=== PATIENT | female | born 1950 | race Caucasian/White ===

== ENCOUNTER 2018-10-13 02:55 | Observation (INO) ==
--- NOTE | 2018-10-13 03:05 | Emergency Department Note ---
Disposition Clinical Impression: Palpitations, Chest pain, rule out acute myocardial infarction Disposition: Admitted As Inpatient Condition: Fair General Adult HPI - General Stated complaint: tightness of chest Time Seen by Provider: 10/13/18 02:56 - Related Data Previous Rx's Medication Instructions Recorded RX: Erythromycin OPTH Oint 1 appl RIGHT EYE QID #1 tube 02/21/18 Allergies Allergy/AdvReac Type Severity Reaction Status Date / Time gabapentin [From Neurontin] Allergy Anaphylaxis Verified 10/05/15 11:16 pregabalin [From Lyrica] Allergy Anaphylaxis Verified 10/05/15 11:16 Past Medical History - Past Medical History Medical history: Reports: diabetes, GERD Surgical history: Reports: hysterectomy, orthopedic, other Psychiatric history: Reports: depression - Social History Smoking Status: Unknown if ever smoked Smokeless Tobacco Status: Yes Alcohol use: Reports: none Drug use: Reports: none Course Vital Signs Temperature 98.4 F 10/13/18 02:58 Pulse Rate 108 10/13/18 02:58 Respiratory Rate 16 10/13/18 02:58 Blood Pressure 117/69 10/13/18 02:58 O2 Sat by Pulse Oximetry 96 10/13/18 02:58 Temperature 98.0 F 10/13/18 05:50 Pulse Rate 80 10/13/18 05:50 Respiratory Rate 16 10/13/18 05:50 Blood Pressure 101/62 10/13/18 05:50 O2 Sat by Pulse Oximetry 97 10/13/18 05:50 Oxygen Delivery Oxygen Delivery Room Air Medical Decision Making - Lab Data Result diagrams: 10/13/18 03:20 10/13/18 03:20 Lab Results 10/13/18 10/13/18 10/13/18 Range/Units 03:20 03:20 03:20 WBC 7.5 (4.3-11.1) K/mcL RBC 4.55 (3.82-4.97) M/mcL Hgb 12.6 (11.5-15.4) g/dL Hct 39.5 (35.3-44.9) % MCV 86.8 (83.0-100.0) fL MCH 27.7 L (28.0-33.3) pg MCHC 31.9 (31.6-35.5) g/dL RDW 14.5 (11.5-14.5) % Plt Count 260 (140-400) K/mcL MPV 9.7 (9.4-12.4) fL Immature Gran % 0.3 (0-4) % Seg Neutrophils % 68.8 % Lymphocytes % 22.7 % Monocytes % 6.5 % Eosinophils % 1.2 % Basophils % 0.5 % Neutrophils # 5.2 (1.6-8.9) K/mcL Lymphocytes # 1.7 (0.6-4.6) K/mcL Monocytes # 0.5 (0.0-1.3) K/mcL Eosinophils # 0.1 (0.0-0.6) K/mcL Basophils # 0.0 (0.0-0.2) K/mcL Immature Plt Fraction 2.5 (1.1-6.1) % PT 10.2 (9.4-12.1) Seconds INR 0.9 APTT 31.0 (26.0-36.0) Seconds Sodium 138 (136-145) mEq/L Potassium 3.0 L (3.5-5.1) mEq/L Chloride 100 (98-107) mEq/L Carbon Dioxide 28 (23-29) mEq/L BUN 15 (8-23) mg/dL Creatinine 1.25 H (0.60-1.20) mg/dL Est GFR ( Amer) 52 L (> 60) Est GFR (Non-Af Amer) 43 L (> 60) BUN/Creatinine Ratio 12 (6-26) Glucose 183 H (70-105) mg/dL Calculated Osmolality 292 (280-300) Calcium 10.0 (8.6-10.3) mg/dL Magnesium 1.6 (1.6-2.6) mg/dL Troponin I < 0.03 (< 0.04) ng/mL Attestation Statement - Attestation Attestation: For this encounter, I have reviewed the STEMMER MACHINE or PA documentation, treatment plan, and medical decision making; and I have had face to face time with this patient. [id number] time provided Patient arrives by EMS with palpitations, tachycardia, chest discomfort and an abnormal sensation in her left upper extremity. She is mildly tachycardic but not conversationally dyspneic on exam. ECG reviewed by me
--- NOTE | 2018-10-13 03:13 | Emergency Department Note ---
Disposition Clinical Impression: Palpitations, Chest pain, rule out acute myocardial infarction Disposition: Admitted As Inpatient Condition: Fair Referrals: NONE,PCP [Primary Care Provider] - Forms: ED Satisfaction Letter Time of Disposition: 03:14 Chest Pain HPI - General Chief Complaint: ED Arrhythmia/Palpitations Stated Complaint: tightness of chest Time Seen by Provider: 10/13/18 02:56 Source: patient, EMS Mode of arrival: EMS Limitations: physical limitation Vital Signs Reviewed: Yes Nursing Notes Reviewed: Yes - History of Present Illness HPI Narrative: Alert and oriented nontoxic-appearing 68-year-old female with a history of diabetes, hypertension, hyperlipidemia, and current every day smoker presents by EMS for evaluation of substernal chest tightness, palpitations, and left upper extremity pain. Symptoms began yesterday morning. She describes a sudden onset of substernal chest pressure that radiated into the jaw. This was short-lived and resolved spontaneously. Earlier this morning shortly after she awoke, she states the pain returned. This time, it was accompanied by an aching sensation in the left upper extremity. She also describes a sensation of "my heart racing". She denies any nausea or vomiting. She does describe some "clamminess" during her ride to the emergency department in the squad. She denies any pain with inspiration or hemoptysis. She denies any cough or sputum production. She denies any previous cardiac history of her own but states a strong familial cardiac history including sudden cardiac of her father. By the time of her arrival, she states that the chest pain has resolved however the achiness in the left arm persists. EMS administered no medications in rou te. Pt complaint: chest pain (Palpitations) Duration: other (Improving) Pain Location: substernal Severity: moderate Severity scale (1-10): 5 Quality: tightness Pain Radiation: LUE Improves with: nothing Worsens with: nothing Associated symptoms: Reports: diaphoresis, palpitations. Denies: nausea, vomiting, dyspnea, fever, cough Treatments prior to arrival chest pain: none - Related Data Previous Rx's Medication Instructions Recorded Erythromycin OPTH Oint 1 appl RIGHT EYE QID #1 tube 02/21/18 Allergies Allergy/AdvReac Type Severity Reaction Status Date / Time gabapentin [From Neurontin] Allergy Anaphylaxis Verified 10/05/15 11:16 pregabalin [From Lyrica] Allergy Anaphylaxis Verified 10/05/15 11:16 All systems ED: reviewed and negative except as stated. Review of Systems: As Per HPI Constitutional: Denies: fever, chills, weakness, weight change Eyes: Denies: eye pain, eye discharge, vision change ENT ED: Denies: ear pain, throat pain, dental pain, hearing loss, epistaxis, congestion, dysphagia Cardiovascular: Reports: as per HPI, chest pain, palpitations. Denies: dyspnea on exertion, edema, syncope Respiratory: Denies: cough, dyspnea, wheezes, hemoptysis, stridor Gastrointestinal: Denies: abdominal pain, nausea, vomiting, diarrhea, constipation, hematemesis, melena, hematochezia Genitourinary: Denies: dysuria, frequency, hematuria, discharge Musculoskeletal: Denies: back pain, neck pain, arthralgia, myalgia Integumentary: Denies: rash, abrasion, lesions Neurological: Denies: headache, weakness, numbness, paresthesias, confusion, abnormal gait, vertigo Psychiatric: Denies: anxiety, depression, suicidal thoughts, homicidal thoughts, auditory hallucinations, visual hallucinations Endocrine: Denies: fatigue Hematological/Lymphatic: Denies: easy bleeding, easy bruising Allergic/Immunologic: Denies: facial swelling, urticaria Chest Pain PMH - Past Medical History Medical history: Reports: diabetes, GERD, hyperlipidemia, hypertension Surgical history: Reports: hysterectomy, orthopedic, other Psychiatric history: Reports: depression CHANGE BOOTH ATTENDANT history: Reports: no CHANGE BOOTH ATTENDANT history - Social History Smoking Status: Unknown if ever smoked Alcohol use: Reports: none Drug use: Reports: none Physical Exam - General Limitations: physical limitation General appearance: alert, in no apparent distress - Head Head exam: atraumatic, normocephalic, normal inspection - Eye Eye exam: Present: normal appearance, PERRL, EOMI. Absent: nystagmus - ENT ENT exam: mucous membranes moist - Neck Neck exam: Present: normal inspection, full ROM, trachea midline - Chest Chest inspection: Present: normal inspection, symmetric chest wall rise - Respiratory Respiratory exam: Present: normal lung sounds bilaterally. Absent: respiratory distress, wheezes, stridor, accessory muscle use, prolonged expiratory phase - Cardiovascular Cardiovascular exam: Present: normal rhythm, tachycardia, normal heart sounds - Abdominal Exam Abdominal exam: Present: soft, Non-Tender, normal bowel sounds - Extremities Exam Extremities exam: Present: full ROM, other (Right [id number] amputation) - Neurological Exam Neurological exam: Present: alert, oriented X3 - Psychiatric Psychiatric exam: Present: normal affect, normal mood - Skin Skin exam: Present: warm, dry, intact, normal color. Absent: rash Course Course Narrative: 0446: I spoke with Dr. Alexis of the hospitalist service. He accepts the pa tient for admission to the hospitalist care for further management and evaluation of this patient's chest pain. I have discussed this patient's case with Dr. Villegas, ED attending. Dr. Villegas has had a [id number] evaluation with the patient and agrees with this plan. - Reevaluation(s) Reevaluation #1: The patient states near complete resolution of her pain after the administration of a single nitroglycerin tablet. Time: 04:15 Vital Signs Temperature 98.4 F 10/13/18 02:58 Pulse Rate 108 10/13/18 02:58 Respiratory Rate 16 10/13/18 02:58 Blood Pressure 117/69 10/13/18 02:58 O2 Sat by Pulse Oximetry 96 10/13/18 02:58 Temperature 98.4 F 10/13/18 02:58 Pulse Rate 96 10/13/18 04:06 Respiratory Rate 17 10/13/18 04:06 Blood Pressure 96/62 10/13/18 04:06 O2 Sat by Pulse Oximetry 97 10/13/18 04:06 Oxygen Delivery Oxygen Delivery Room Air Chest Pain - Medical Records Medical records reviewed: Yes I reviewed the patient's medical records. - Lab Data Lab results reviewed: Yes I reviewed the patient's lab results. Lab results narrative: Lab Results 10/13/18 10/13/18 Range/Units 03:20 03:20 WBC 7.5 (4.3-11.1) K/mcL RBC 4.55 (3.82-4.97) M/mcL Hgb 12.6 (11.5-15.4) g/dL Hct 39.5 (35.3-44.9) % MCV 86.8 (83.0-100.0) fL MCH 27.7 L (28.0-33.3) pg MCHC 31.9 (31.6-35.5) g/dL RDW 14.5 (11.5-14.5) % Plt Count 260 (140-400) K/mcL MPV 9.7 (9.4-12.4) fL Immature Gran % 0.3 (0-4) % Seg Neutrophils % 68.8 % Lymphocytes % 22.7 % Monocytes % 6.5 % Eosinophils % 1.2 % Basophils % 0.5 % Neutrophils # 5.2 (1.6-8.9) K/mcL Lymphocytes # 1.7 (0.6-4.6) K/mcL Monocytes # 0.5 (0.0-1.3) K/mcL Eosinophils # 0.1 (0.0-0.6) K/mcL Basophils # 0.0 (0.0-0.2) K/mcL Immature Plt Fraction 2.5 (1.1-6.1) % Sodium 138 (136-145) mEq/L Potassium 3.0 L (3.5-5.1) mEq/L Chloride 100 (98-107) mEq/L Carbon Dioxide 28 (23-29) mEq/L BUN 15 (8-23) mg/dL Creatinine 1.25 H (0.60-1.20) mg/dL Est GFR ( Amer) 52 L (> 60) Est GFR (Non-Af Amer) 43 L (> 60) BUN/Creatinine Ratio 12 (6-26) Glucose 183 H (70-105) mg/dL Calculated Osmolality 292 (280-300) Calcium 10.0 (8.6-10.3) mg/dL Troponin I < 0.03 (< 0.04) ng/mL Result diagrams: 10/13/18 03:20 10/13/18 03:20 Lab Results 10/13/18 10/13/18 Range/Units 03:20 03:20 WBC 7.5 (4.3-11.1) K/mcL RBC 4.55 (3.82-4.97) M/mcL Hgb 12.6 (11.5-15.4) g/dL Hct 39.5 (35.3-44.9) % MCV 86.8 (83.0-100.0) fL MCH 27.7 L (28.0-33.3) pg MCHC 31.9 (31.6-35.5) g/dL RDW 14.5 (11.5-14.5) % Plt Count 260 (140-400) K/mcL MPV 9.7 (9.4-12.4) fL Immature Gran % 0.3 (0-4) % Seg Neutrophils % 68.8 % Lymphocytes % 22.7 % Monocytes % 6.5 % Eosinophils % 1.2 % Basophils % 0.5 % Neutrophils # 5.2 (1.6-8.9) K/mcL Lymphocytes # 1.7 (0.6-4.6) K/mcL Monocytes # 0.5 (0.0-1.3) K/mcL Eosinophils # 0.1 (0.0-0.6) K/mcL Basophils # 0.0 (0.0-0.2) K/mcL Immature Plt Fraction 2.5 (1.1-6.1) % Sodium 138 (136-145) mEq/L Potassium 3.0 L (3.5-5.1) mEq/L Chloride 100 (98-107) mEq/L Carbon Dioxide 28 (23-29) mEq/L BUN 15 (8-23) mg/dL Creatinine 1.25 H (0.60-1.20) mg/dL Est GFR ( Amer) 52 L (> 60) Est GFR (Non-Af Amer) 43 L (> 60) BUN/Creatinine Ratio 12 (6-26) Glucose 183 H (70-105) mg/dL Calculated Osmolality 292 (280-300) Calcium 10.0 (8.6-10.3) mg/dL Troponin I < 0.03 (< 0.04) ng/mL - Radiology Data Radiology results reviewed: Yes I reviewed the patient's radiology results. Chest X-Ray 10/13/18 02:56 IMPRESSION: No acute cardiopulmonary process identified. D/ / Glen Handley MD / Glen Handley MD Interpreting Provider: Glen Handley MD - EKG Data EKG attestation: Yes I reviewed and interpreted this EKG. EKG results narrative: EKG reviewed by Dr. Villegas as well. EKG shows a sinus tachycardia at a rate of 105 bpm. SC interval 182, QRS duration 83, QT/QTc interval 359/475. No ectopy noted. No ST elevation. Heart Score - Score History: Moderately Suspicious EKG: Normal Age: Greater than 65 Risk Factors: Equal/Greater than 3 risk factor or history of atherosclerotic disease Troponin: Less than normal limit HEART Score Total: 5
[2018-10-13] MEDS ORDERED: Nitroglycerin 0.4 MG TAB.SUBL SL PRN (03:15)
[2018-10-13] MEDS ORDERED: Aspirin 81 MG TAB.CHEW PO STA (03:15)
[2018-10-13 03:36] LABS: Basophils % 0.5 %; Eosinophils # 0.1 K/mcL (0.0-0.6); Eosinophils % 1.2 %; Hematocrit 39.5 % (35.3-44.9); Hemoglobin 12.6 g/dL (11.5-15.4); Immature Granulocytes % 0.3 % (0-4); Immature Platelets 2.5 % (1.1-6.1); Lymphocytes # 1.7 K/mcL (0.6-4.6); Lymphocytes % 22.7 %; Mean Corpuscular HGB Conc 31.9 g/dL (31.6-35.5); Mean Corpuscular Hemoglobin 27.7 pg (28.0-33.3); Mean Corpuscular Volume 86.8 fL (83.0-100.0); Mean Platelet Volume 9.7 fL (9.4-12.4); Monocytes # 0.5 K/mcL (0.0-1.3); Monocytes % 6.5 %; Neutrophils # 5.2 K/mcL (1.6-8.9); Platelet Count 260 K/mcL (140-400); Red Blood Count 4.55 M/mcL (3.82-4.97); Red Cell Distribution Width 14.5 % (11.5-14.5); Segmented Neutrophils % 68.8 %
[2018-10-13 03:56] LABS: BUN/Creatinine Ratio 12 (6-26); Blood Urea Nitrogen 15 mg/dL (8-23); Carbon Dioxide 28 mEq/L (23-29); Chloride 100 mEq/L (98-107); Glucose 183 mg/dL (70-105); Osmolality,Calculated 292 (280-300); Sodium 138 mEq/L (136-145); eGFR For Non-African Americans 43 (> 60)
[2018-10-13 03:57] LABS: Troponin I < 0.03 ng/mL (< 0.04)
[2018-10-13] MEDS ORDERED: Potassium Effervescent 25 MEQ TABLET.EFF PO ONE (04:00)
[2018-10-13 04:54] LABS: INR 0.9; Prothrombin Time 10.2 Seconds (9.4-12.1)
[2018-10-13 05:08] LABS: Magnesium 1.6 mg/dL (1.6-2.6)
[2018-10-13 07:41] VITALS: BP 98/58
[2018-10-13] MEDS ORDERED: Naloxone 0.4 MG/ML INJ IVP PRN (07:55)
[2018-10-13] MEDS ORDERED: traMADol 50 MG TABLET PO PRN (07:58)
[2018-10-13] MEDS ORDERED: 0.9 % Sodium Chloride 1,000 ML IVC SCH (08:00)
[2018-10-13] MEDS ORDERED: Regadenoson 0.4 MG/5 ML SYRINGE IVP ONE (08:21)
[2018-10-13 09:07] LABS: Chol/HDL Ratio 4.1 (0-4.9); Cholesterol 138 mg/dL (< 200); HDL Cholesterol 34 mg/dL (40-59); LDL Cholesterol,Calculated 72 mg/dL (0-99); Magnesium 1.6 mg/dL (1.6-2.6); Triglycerides 159 mg/dL (< 150); Troponin I < 0.03 ng/mL (< 0.04)
[2018-10-13] MEDS ORDERED: D5% in Water 1,000 ML IVC PRN (09:29)
[2018-10-13] MEDS ORDERED: Dextrose Gel 15 GM/37.5 ML TUBE PO PRN ×2 (09:29)
[2018-10-13] MEDS ORDERED: *HR* Dextrose 50 % in Water (Syg) 50 ML SYRINGE IVP PRN (09:29)
--- NOTE | 2018-10-13 09:38 | Internal Med History&Physical ---
Date of Encounter: 10/13/18 Time of Encounter: 09:31 Internal Medicine - H&P: HPI Chief complaint: palpitations. chest discomfort Admitted From: Home Plans for Post Hospital Care: Home History of present illness: Ms. Tripp is a 68 year old female past medical history diabetes, hypothyroidism, tobacco abuse, depression, hyperlipidemia, and BKA. Patient presented to the ED due to 2 days history of chest pain radiating to her jaw. She reports the patient is intermittent 5/10, sharp lasting <1 minute. Reports the pain went went away on its own, but last night she started having palpitations associated with chest tightness, lightheadedness and chest discomfort with radiation to her left arm. Report that those symptoms lasted about 1 hour and were relieved by nitroglycerin she received in the ED. denies chest pain, nausea, vomiting or or GI discomfort. Past Med Surg Social Fam HX - Past Medical History Medical history: diabetes, GERD Psychiatric history: depression - Past Surgical History Surgical History: hysterectomy, orthopedic, other Additional surgical history: R below the knee amputation - Social History Smoking Status: Unknown if ever smoked Packs per day: 1 Smokeless Tobacco Status: Yes Alcohol use: none Drug use: none - Family History Father Living Status: Hx Family Cardiac Disorders: Yes (OR, CHF, HTN,) Hx Family Neurologic Disorders: Yes (CVA) Mother Hx Family Respiratory Disorders: Yes (Emphysema) Internal Medicine - H&P: Meds Erythromycin OPTH Oint 1 appl RIGHT EYE QID #1 tube 02/21/18 [Rx] Allergy/AdvReac Type Severity Reaction Status Date / Time gabapentin [From Neurontin] Allergy Anaphylaxis Verified 10/05/15 11:16 pregabalin [From Lyrica] Allergy Anaphylaxis Verified 10/05/15 11:16 All Systems PM: A 10-system review of systems was performed and is negative for pertinent findings except as documented above in the HPI. - Constitutional Constitutional: no chills, no fever(s), no weakness - EENT Eyes: no irritation Ears: no decreased hearing - Cardiovascular Cardiovascular ROS IM: chest pain, lightheadedness, palpitations, no dyspnea, no paroxysmal nocturnal dyspnea, no syncope - Respiratory Respiratory: no cough, no pain on inspiration, no chest congestion, no excessive phlegm production - Gastrointestinal Gastrointestinal: no abdominal pain, no diarrhea, no melena, no nausea, no vomiting - Genitourinary Genitourinary: no dysuria, no urinary frequency, no urinary urgency - Musculoskeletal Musculoskeletal ROS IM: no muscle weakness - Integumentary Integumentary IM: no rash - Neurological Neurological ROS: no headache(s), no lack of coordination - Psychiatric Psychiatric: no depression, no hopelessness, no irritability - Endocrine Endocrine IM: no polydipsia - Hematologic/Lymphatic Hematologic/Lymphatic: no lymphadenopathy - Allergic/Immunologic Allergic/Immunologic: no wheezing Additional comments: Rest of a 10 review of system negative. - Constitutional Vitals: Temp Pulse Resp BP Pulse Ox 98.2 F 65 16 98/58 96 10/13/18 07:36 10/13/18 07:36 10/13/18 07:36 10/13/18 07:36 10/13/18 07:36 Exam: Vitals: reviewed. General: Alert and oriented x4. In no acute distress. Skin: Normal color, no rash, no lesions. HEENT: EOM, pupils equal, round and reactive. Cardiovascular: RRR, normal S1 & S2, no rubs, murmurs or gallops. Lungs: CTA b/l, no wheezes or crackles. Abdomen: Soft, non-tender, no rigidity. Extremities: right BKA, no edema in the left lower extr. Neurological: Normal cognition. Rest of the physical exam is non contributory Internal Med - H&P Results - Labs CBC & Chem 7: 10/13/18 03:20 10/13/18 03:20 Labs: Short CBC 10/13/18 Range/Units 03:20 WBC 7.5 (4.3-11.1) K/mcL Hgb 12.6 (11.5-15.4) g/dL Hct 39.5 (35.3-44.9) % Plt Count 260 (140-400) K/mcL Neutrophils # 5.2 (1.6-8.9) K/mcL BMP 10/13/18 03:20 Sodium 138 Potassium 3.0 L Chloride 100 Carbon Dioxide 28 BUN 15 Creatinine 1.25 H Glucose 183 H Calcium 10.0 Cardiac Enzymes 10/13/18 10/13/18 Range/Units 03:20 08:36 Troponin I < 0.03 < 0.03 (< 0.04) ng/mL - Impressions ITS Impressions Chest X-Ray 10/13/18 02:56 IMPRESSION: No acute cardiopulmonary process identified. D/ / Glen Handley MD / Glen Handley MD Interpreting Provider: Glen Handley MD - Diagnostic Studies Chest x-ray Status: image reviewed by me (No acute abnormalities. ) - Assessment and plan (1) Chest pain Current Visit: Yes Status: Acute Assessment and plan: atypical chest pain. Patient with multiple risk factors for CAD. Plan Serial troponin EKG Nitroglycerin 0.5 sublingual 3 every 15 minute when necessary will add Metoprolol 12.5 mg twice a day hold for SBP less than 110 and heart rate less than 55 Aspirin 81 mg by mouth daily Lisinopril 5 mg by mouth daily Telemetry monitoring TTE to evaluate wall motion and valvular abnormalities Pharm stress test ordered. Qualifiers: Chest pain type: unspecified Qualified Code(s): R07.9 - Chest pain, uns pecified (2) Diabetes Current Visit: Yes Status: Chronic Assessment and plan: as per patient she is on metformin. Carbs controlled diet. Will start levemir 5 units BID, plus lispro low dose sliding scale ac. Qualifiers: Diabetes mellitus type: type 2 Diabetes mellitus complication status: with unspecified complications Qualified Code(s): E11.8 - Type 2 diabetes mellitus with unspecified complications (3) HLD (hyperlipidemia) Current Visit: Yes Status: Chronic Assessment and plan: will start atorvastatin 40mg/PO daily. Lipid panel ordered. Qualifiers: Hyperlipidemia type: unspecified Qualified Code(s): E78.5 - Hyperlipidemia, unspecified (4) Depression Current Visit: Yes Status: Chronic Assessment and plan: On cymbalta 120mg/PO daily. resume home medication. Qualifiers: Depression Type: unspecified Qualified Code(s): F32.9 - Major depressive disorder, single episode, unspecified (5) HTN (hypertension) Current Visit: Yes Status: Chronic Assessment and plan: Started on metoprolol 12.5mg/PO daily. After pharmacy verifies meds will re- evaluate BP and adjust medications. Qualifiers: Hypertension type: unspecified Qualified Code(s): I10 - Essential (primary) hypertension (6) Hypothyroidism Current Visit: Yes Status: Chronic Assessment and plan: Resume levothyroxine after pharmacy verifies dosage. Qualifiers: Hypothyroidism type: unspecified Qualified Code(s): E03.9 - Hypothyroidism, unspecified (7) DVT prophylaxis Current Visit: Yes Status: Acute Assessment and plan: Started on heparin 5000 units SubQ Q8HRs. (8) CARRIE (acute kidney injury) Current Visit: Yes Status: Acute Assessment and plan: unclear etiology. started on gentle IV hydration. will re-evaluate kidney function in the morning. (9) Hypokalemia Current Visit: Yes Status: Acute Assessment and plan: electrolyte replaced. - Time Spent With Patient Total time spent is greater than 50% in coordination of care (as documented) at patient's floor/unit and/or counseling patient: Greater than 35 minutes (45)
[2018-10-13] MEDS ORDERED: Insulin DETEMIR 100 UNIT/ML X5UNITS SQ SCH (10:00)
[2018-10-13] MEDS ORDERED: Insulin LISPRO 300 UNITS/3 ML VIAL SQ SCH (11:30)
[2018-10-13] MEDS ORDERED: *HR* Heparin 5,000 UNIT/ML VIAL SQ SCH (14:00)
--- NOTE | 2018-10-13 15:15 | Discharge Summary ---
- NOTES TO OUTPATIENT PROVIDER Notes to Outpatient Provider: f/u with PCP within 2 weeks. Orders not resulted at time of discharge: Pending orders 10/13/18 08:00 NM james perf SPECT multi [NM] Routine 10/13/18 20:00 Troponin I Q6H 10/14/18 04:00 Basic Metabolic Panel AM 0400 Complete Blood Count w/o Diff [HEME] AM 0400 Phosphorous AM 0400 Date of Encounter: 10/13/18 Time of Encounter: 15:13 - Discharge Diagnosis (1) Chest pain Priority: Primary Status: Acute Qualifiers: Chest pain type: unspecified Qualified Code(s): R07.9 - Chest pain, unspecified (2) Diabetes Priority: Secondary Status: Chronic Qualifiers: Diabetes mellitus type: type 2 Diabetes mellitus complication status: with unspecified complications Qualified Code(s): E11.8 - Type 2 diabetes mellitus with unspecified complications (3) HLD (hyperlipidemia) Priority: Secondary Status: Chronic Qualifiers: Hyperlipidemia type: unspecified Qualified Code(s): E78.5 - Hyperlipidemia, unspecified (4) Depression Priority: Secondary Status: Chronic Qualifiers: Depression Type: unspecified Qualified Code(s): F32.9 - Major depressive d isorder, single episode, unspecified (5) HTN (hypertension) Priority: Secondary Status: Chronic Qualifiers: Hypertension type: unspecified Qualified Code(s): I10 - Essential (primary) hypertension (6) Hypothyroidism Priority: Secondary Status: Chronic Qualifiers: Hypothyroidism type: unspecified Qualified Code(s): E03.9 - Hypothyroidism, unspecified (7) DVT prophylaxis Priority: Primary Status: Acute (8) CARRIE (acute kidney injury) Priority: Primary Status: Acute (9) Hypokalemia Priority: Primary Status: Acute Hospital course: Ms. Tripp is a 68 year old female past medical history diabetes, hypothyroidism, tobacco abuse, depression, hyperlipidemia, and BKA. Patient presented to the ED due to 2 days history of chest pain radiating to her jaw. She reports the patient is intermittent 5/10, sharp lasting <1 minute. Reports the pain went went away on its own, but last night she started having palpitations associated with chest tightness, lightheadedness and chest discomfort with radiation to her left arm. Report that those symptoms lasted about 1 hour and were relieved by nitroglycerin she received in the ED. denies chest pain, nausea, vomiting or or GI discomfort. Both stress test and echocardiogram were unremarkable. Pt will be discharged home, f/u PCP within 2 weeks. Discharge discussed with: patient Time spent discussing smoking cessation with patient: more than 10 minutes - Time Spent with Patient Total time spent providing and/or coordinating discharge services: 25 mins. Less than 30 minutes - Discharge Medications Prescriptions: Atorvastatin [Lipitor] 40 mg PO HS #30 tablet Metoprolol XL (24 HR) Succ [Toprol Xl] 12.5 mg PO DAILY #30 tab.er.24h Home Medications: Erythromycin OPTH Oint 1 appl RIGHT EYE QID #1 tube 02/21/18 [Rx] Atorvastatin [Lipitor] 40 mg PO HS #30 tablet 10/13/18 [Rx] Metoprolol XL (24 HR) Succ [Toprol Xl] 12.5 mg PO DAILY #30 tab.er.24h 10/13/18 [Rx] clonazePAM [Clonazepam] 1 mg PO QAM PRN 10/13/18 [History] Allergies/Adverse Reactions: Allergy/AdvReac Type Severity Reaction Status Date / Time gabapentin [From Neurontin] Allergy Anaphylaxis Verified 10/05/15 11:16 pregabalin [From Lyrica] Allergy Anaphylaxis Verified 10/05/15 11:16 Date of admission: 10/13/18 04:48 Primary care physician: PCP NONE Anticipated date of discharge: 10/13/18 - Constitutional Vitals: Temp Pulse Resp BP Pulse Ox 98.2 F 65 16 98/58 96 10/13/18 07:36 10/13/18 07:36 10/13/18 07:36 10/13/18 07:36 10/13/18 07:36 General appearance: Present: cooperative, A&O X 3, answers questions appropriately Exam: Vitals: reviewed. General: Alert and oriented x4. In no acute distress. Skin: Normal color, no rash, no lesions. HEENT: EOM, pupils equal, round and reactive. Cardiovascular: RRR, normal S1 & S2, no rubs, murmurs or gallops. Lungs: CTA b/l, no wheezes or crackles. Abdomen: Soft, non-tender, no rigidity. Extremities: right BKA, no edema in the left lower extr. Neurological: Normal cognition. Rest of the physical exam is non contributory - Patient Status Disposition: Home, Self-Care Condition: Fair Functional capacity at discharge: independent ambulation Overall status at discharge: patient is progressing back to baseline - Discharge Instructions Follow Up With: NONE,PCP [Primary Care Provider] - - Diet and Activity Activity: increase activity as tolerated Diet: advance to your usual diet
[2018-10-14] MEDS ORDERED: Metoprolol XL (24 HR) Succ 25 MG TAB.ER.24H PO SCH (09:00)
--- NOTE | 2018-10-14 17:48 | Electrocardiograph Report ---
[address] [place], [place] [address] Test Date: 2018-10-13 Pat Name: Ernestina Tripp Department: [id number] Room: 3B34 Gender: F Digital Data Analyst: : 1950 Requested By: Dani Chester Order Number: [id number] Reading MD: Gurvinder Whittaker Measurements Intervals [place] Rate: 105 P: 65 AR: 182 QRS: -24 QRSD: 83 T: 57 QT: 359 QTc: 475 Interpretive Statements Sinus tachycardia Probable left atrial enlargement Electronically Signed On 10-14-2018 17:46:41 EST by Gurvinder Whittaker
== END 2018-10-13 16:04 | disposition home or self-care (01) ==
LOC: EMEROOARM 02:55 → 3BNU 02:55 → SUATTDRO 04:48 → 3BNU 05:30
PROVIDERS: ADMIT Family Medicine; ATTEND Internal Medicine

== ENCOUNTER 2020-01-17 07:07 | Observation (INO) ==
[2020-01-17 07:33] LABS: Basophils % 0.3 %; Eosinophils % 0.4 %; Hematocrit 36.6 % (35.3-44.9); Hemoglobin 11.8 g/dL (11.5-15.4); Immature Granulocytes % 1.2 % (0-4); Lymphocytes # 3.1 K/mcL (0.6-4.6); Lymphocytes % 32.6 %; Mean Corpuscular HGB Conc 32.2 g/dL (31.6-35.5); Mean Corpuscular Hemoglobin 28.2 pg (28.0-33.3); Mean Corpuscular Volume 87.4 fL (83.0-100.0); Mean Platelet Volume 9.4 fL (9.4-12.4); Monocytes # 0.8 K/mcL (0.0-1.3); Monocytes % 8.5 %; Neutrophils # 5.4 K/mcL (1.6-8.9); Platelet Count 316 K/mcL (140-400); Red Blood Count 4.19 M/mcL (3.82-4.97); Red Cell Distribution Width 15.1 % (11.5-14.5); White Blood Count 9.4 K/mcL (4.3-11.1)
[2020-01-17 07:36] LABS: INR 0.9; Prothrombin Time 10.4 Seconds (9.4-12.1)
[2020-01-17 07:38] LABS: Activated Partial Thrombo Time 25.6 Seconds (26.0-36.0)
[2020-01-17 07:52] LABS: BUN/Creatinine Ratio 17 (6-26); Blood Urea Nitrogen 18 mg/dL (8-23); Calcium 9.7 mg/dL (8.6-10.3); Carbon Dioxide 30 mEq/L (23-29); Chloride 100 mEq/L (98-107); Glucose 111 mg/dL (70-105); Osmolality,Calculated 291 (280-300); Potassium 3.3 mEq/L (3.5-5.1); Sodium 139 mEq/L (136-145); Troponin I < 0.03 ng/mL (< 0.04); eGFR For African Americans > 60 (> 60); eGFR For Non-African Americans 53 (> 60)
[2020-01-17] MEDS ORDERED: Acetaminophen 325 MG TABLET PO PRN (09:15)
[2020-01-17] MEDS ORDERED: Naloxone 0.4 MG/ML INJ IVP PRN (09:15)
[2020-01-17] MEDS ORDERED: Ondansetron 4 MG/2 ML VIAL IVP PRN (09:15)
[2020-01-17] MEDS ORDERED: Nitroglycerin 0.4 MG TAB.SUBL SL PRN (09:17)
[2020-01-17] MEDS ORDERED: *HR* Dextrose 50 % in Water (Syg) 50 ML SYRINGE IVP PRN (09:17)
[2020-01-17] MEDS ORDERED: D5% in Water 1,000 ML IVC PRN (09:17)
[2020-01-17] MEDS ORDERED: Dextrose Gel 15 GM/37.5 ML TUBE PO PRN ×2 (09:17)
[2020-01-17] MEDS ORDERED: Sennosides 8.6 MG TABLET PO PRN (09:18)
[2020-01-17] MEDS ORDERED: predniSONE 20 MG TABLET PO ONE (09:19)
[2020-01-17] MEDS: Insulin LISPRO 300 UNITS/3 ML VIAL SQ SCH ×2 (13:58→17:42)
[2020-01-17] MEDS: clonazePAM 0.5 MG TABLET PO SCH ×2 (14:13→22:22)
[2020-01-17] MEDS: carvediloL 6.25 MG TABLET PO SCH (17:57)
[2020-01-17] MEDS: *HR* Heparin 5,000 UNIT/ML VIAL SQ SCH (17:59)
[2020-01-17] MEDS ORDERED: Insulin DETEMIR 100 UNIT/ML X5UNITS SQ SCH (21:00)
[2020-01-17] MEDS: cephALEXin 500 MG CAPSULE PO SCH (22:22)
[2020-01-18 05:56] LABS: Basophils # 0.1 K/mcL (0.0-0.2); Basophils % 0.9 %; Eosinophils # 0.1 K/mcL (0.0-0.6); Eosinophils % 1.6 %; Hematocrit 36.3 % (35.3-44.9); Hemoglobin 11.6 g/dL (11.5-15.4); Immature Granulocytes % 0.9 % (0-4); Lymphocytes # 2.9 K/mcL (0.6-4.6); Lymphocytes % 46.1 %; Mean Corpuscular Hemoglobin 28.8 pg (28.0-33.3); Mean Corpuscular Volume 90.1 fL (83.0-100.0); Mean Platelet Volume 9.1 fL (9.4-12.4); Monocytes # 0.4 K/mcL (0.0-1.3); Monocytes % 6.6 %; Neutrophils # 2.8 K/mcL (1.6-8.9); Platelet Count 257 K/mcL (140-400); Red Blood Count 4.03 M/mcL (3.82-4.97); Red Cell Distribution Width 15.1 % (11.5-14.5); Segmented Neutrophils % 43.9 %; White Blood Count 6.3 K/mcL (4.3-11.1)
[2020-01-18] MEDS: *HR* Heparin 5,000 UNIT/ML VIAL SQ SCH (05:56)
[2020-01-18 06:16] LABS: BUN/Creatinine Ratio 18 (6-26); Blood Urea Nitrogen 19 mg/dL (8-23); Calcium 9.1 mg/dL (8.6-10.3); Carbon Dioxide 33 mEq/L (23-29); Chloride 101 mEq/L (98-107); Cholesterol 176 mg/dL (< 200); Glucose 92 mg/dL (70-105); HDL Cholesterol 35 mg/dL (40-59); Magnesium 1.7 mg/dL (1.6-2.6); Osmolality,Calculated 290 (280-300); Phosphorous 3.5 mg/dL (2.7-4.5); Potassium 3.8 mEq/L (3.5-5.1); Sodium 139 mEq/L (136-145); Triglycerides 482 mg/dL (< 150); eGFR For African Americans > 60 (> 60); eGFR For Non-African Americans 50 (> 60)
[2020-01-18 06:27] VITALS: BP 115/69
[2020-01-18] MEDS: Insulin LISPRO 300 UNITS/3 ML VIAL SQ SCH (07:35)
[2020-01-18] MEDS: carvediloL 6.25 MG TABLET PO SCH (09:49)
[2020-01-18] MEDS: clonazePAM 0.5 MG TABLET PO SCH (09:49)
[2020-01-18] MEDS: cephALEXin 500 MG CAPSULE PO SCH (09:49)
== END 2020-01-18 10:54 | disposition home or self-care (01) ==
LOC: EMEROOARM 07:07 → 3BNU 07:07
PROVIDERS: ADMIT Internal Medicine; ATTEND Internal Medicine

== ENCOUNTER 2020-07-20 02:39 | Inpatient (IN) ==
[2020-07-20 03:12] LABS: Basophils % 0.3 %; Eosinophils # 0.3 K/mcL (0.0-0.6); Eosinophils % 2.7 %; Hematocrit 34.9 % (35.3-44.9); Hemoglobin 10.9 g/dL (11.5-15.4); Immature Granulocytes % 0.3 % (0-4); Lymphocytes # 2.6 K/mcL (0.6-4.6); Lymphocytes % 21.4 %; Mean Corpuscular HGB Conc 31.2 g/dL (31.6-35.5); Mean Corpuscular Hemoglobin 26.8 pg (28.0-33.3); Mean Corpuscular Volume 85.7 fL (83.0-100.0); Mean Platelet Volume 9.4 fL (9.4-12.4); Monocytes # 0.7 K/mcL (0.0-1.3); Neutrophils # 8.4 K/mcL (1.6-8.9); Platelet Count 298 K/mcL (140-400); Red Blood Count 4.07 M/mcL (3.82-4.97); Red Cell Distribution Width 15.3 % (11.5-14.5); Segmented Neutrophils % 69.3 %; White Blood Count 12.1 K/mcL (4.3-11.1)
[2020-07-20 03:17] LABS: Prothrombin Time 12.1 Seconds (9.4-12.1)
[2020-07-20 03:39] LABS: Alanine Aminotransferase 10 Units/L (7-52); Albumin 4.1 g/dL (3.5-5.7); Albumin/Globulin Ratio 1.6 (1.1-2.2); Alkaline Phosphatase 90 Units/L (34-104); Aspartate Amino Transferase 10 Units/L (13-39); BUN/Creatinine Ratio 15 (6-26); Bilirubin,Total 0.2 mg/dL (0.3-1.0); Blood Urea Nitrogen 16 mg/dL (8-23); Calcium 9.1 mg/dL (8.6-10.3); Carbon Dioxide 27 mEq/L (23-29); Chloride 102 mEq/L (98-107); Globulin 2.5 g/dL (2.4-3.5); Glucose 154 mg/dL (70-105); Lipase 45 Units/L (11-82); Magnesium 1.5 mg/dL (1.6-2.6); Osmolality,Calculated 290 (280-300); Sodium 138 mEq/L (136-145); Total Protein 6.6 g/dL (6.4-8.9); Troponin I 0.32 ng/mL (< 0.04); eGFR For African Americans > 60 (> 60); eGFR For Non-African Americans 50 (> 60)
[2020-07-20] MEDS ORDERED: *HR* Heparin 5,000 UNIT/ML VIAL IVP ONE (03:44)
[2020-07-20] MEDS ORDERED: Potassium Chloride Elixir 20 MEQ/15 ML UDC PO ONE (03:44)
[2020-07-20] MEDS ORDERED: *HR* Heparin 5,000 UNIT/ML VIAL IVP PRN ×2 (03:44)
[2020-07-20] MEDS ORDERED: Magnesium Sulfate 1 GM/102 ML PIGGYBACK IVPB ONE (03:45)
[2020-07-20] MEDS ORDERED: Aspirin 325 MG TABLET PO ONE (03:45)
[2020-07-20 03:49] LABS: Thyroid Stimulating Hormone 2.701 mcIU/mL (0.340-5.600)
[2020-07-20 03:55] LABS: Heparin anti-factor XA UFH < 0.04 IU/mL (0.30-0.70)
[2020-07-20 03:58] LABS: Activated Partial Thrombo Time 29.9 Seconds (26.0-36.0)
[2020-07-20] MEDS: Heparin 25,000UNIT/250ML 1/2NS 25,000 UNIT/250 ML IV.SOLN IVC SCH (03:59)
[2020-07-20] MEDS ORDERED: Acetaminophen 325 MG TABLET PO PRN (04:47)
[2020-07-20] MEDS ORDERED: Naloxone 0.4 MG/ML INJ IVP PRN (04:47)
[2020-07-20] MEDS ORDERED: Ondansetron ODT 4 MG TAB.RAPDIS SL PRN (04:47)
[2020-07-20] MEDS ORDERED: D5% in Water 1,000 ML IVC PRN (04:51)
[2020-07-20] MEDS ORDERED: *HR* Dextrose 50 % in Water (Vial) 50 ML VIAL IVP PRN (04:51)
[2020-07-20] MEDS ORDERED: Dextrose Gel 15 GM/37.5 ML TUBE PO PRN ×2 (04:51)
[2020-07-20 05:47] LABS: Adenovirus Not Detected (Not Detect); Bordetella Pertussis Not Detected (Not Detect); Chlamydophila pneumoniae Not Detected (Not Detect); Coronavirus 229E Not Detected (Not Detect); Coronavirus HKU1 Not Detected (Not Detect); Coronavirus NL63 Not Detected (Not Detect); Coronavirus OC43 Not Detected (Not Detect); Human Metapneumovirus Not Detected (Not Detect); Human Rhinovirus/Enterovirus Not Detected (Not Detect); Influenza A Subtype 2009 H1 Not Detected (Not Detect); Influenza B Not Detected (Not Detect); Mycoplasma pneumoniae Not Detected (Not Detect); Parainfluenza Virus 1 Not Detected (Not Detect); Parainfluenza Virus 2 Not Detected (Not Detect); Parainfluenza Virus 3 Not Detected (Not Detect); Parainfluenza Virus 4 Not Detected (Not Detect); Respiratory Syncytial Virus Not Detected (Not Detect); SARS-CoV-2 Not Detected (Not Detect)
[2020-07-20 07:08] LABS: Hematocrit 33.6 % (35.3-44.9); Hemoglobin 10.5 g/dL (11.5-15.4); Mean Corpuscular HGB Conc 31.3 g/dL (31.6-35.5); Mean Corpuscular Hemoglobin 27.2 pg (28.0-33.3); Mean Platelet Volume 10.1 fL (9.4-12.4); Platelet Count 309 K/mcL (140-400); Red Blood Count 3.86 M/mcL (3.82-4.97); Red Cell Distribution Width 15.5 % (11.5-14.5); White Blood Count 10.6 K/mcL (4.3-11.1)
[2020-07-20 07:29] LABS: % Iron Saturation 9 % (15-50); Iron 32 mcg/dL (50-170); Transferrin 243 mg/dL (203-362)
[2020-07-20] MEDS: Insulin LISPRO 300 UNITS/3 ML VIAL SQ SCH ×3 (07:34→18:12)
[2020-07-20] MEDS ORDERED: Nitroglycerin 0.4 MG TAB.SUBL SL PRN (07:38)
[2020-07-20] MEDS ORDERED: Perflutren Lipid Microsphere 1.3 ML in 0.9 % Sodium Chloride 8.7 ML IVP PRN (07:38)
[2020-07-20 07:46] LABS: Ferritin 10 ng/mL (10-120)
[2020-07-20] MEDS: Aspirin Enteric Coated 81 MG Tablet PO SCH (10:05)
[2020-07-20] MEDS: clonazePAM 1 MG TABLET PO SCH (10:05)
[2020-07-20] MEDS: clonazePAM 0.5 MG TABLET PO SCH (20:39)
[2020-07-21 01:18] LABS: Hematocrit 31.8 % (35.3-44.9); Hemoglobin 9.9 g/dL (11.5-15.4); Mean Corpuscular HGB Conc 31.1 g/dL (31.6-35.5); Mean Corpuscular Hemoglobin 27.7 pg (28.0-33.3); Mean Corpuscular Volume 89.1 fL (83.0-100.0); Mean Platelet Volume 9.6 fL (9.4-12.4); Platelet Count 248 K/mcL (140-400); Red Blood Count 3.57 M/mcL (3.82-4.97); Red Cell Distribution Width 15.3 % (11.5-14.5); White Blood Count 6.4 K/mcL (4.3-11.1)
[2020-07-21 01:45] LABS: BUN/Creatinine Ratio 15 (6-26); Blood Urea Nitrogen 16 mg/dL (8-23); Carbon Dioxide 28 mEq/L (23-29); Chloride 106 mEq/L (98-107); Glucose 126 mg/dL (70-105); Magnesium 1.8 mg/dL (1.6-2.6); Osmolality,Calculated 293 (280-300); Potassium 4.1 mEq/L (3.5-5.1); Sodium 140 mEq/L (136-145); eGFR For African Americans > 60 (> 60); eGFR For Non-African Americans 51 (> 60)
[2020-07-21] MEDS: Heparin 25,000UNIT/250ML 1/2NS 25,000 UNIT/250 ML IV.SOLN IVC SCH ×2 (03:52→05:29)
[2020-07-21] MEDS: Insulin LISPRO 300 UNITS/3 ML VIAL SQ SCH ×3 (10:13→17:41)
[2020-07-21] MEDS: Aspirin Enteric Coated 81 MG Tablet PO SCH (10:17)
[2020-07-21] MEDS: clonazePAM 1 MG TABLET PO SCH (10:18)
[2020-07-21] MEDS: Cyanocobalamin (B-12) 1,000 MCG TABLET PO SCH (10:18)
[2020-07-21 11:46] LABS: Hematocrit 32.8 % (35.3-44.9)
[2020-07-21 13:13] LABS: Estimated Average Glucose 146 mg/dl
[2020-07-21] MEDS ORDERED: Nitroglycerin 1,000 MCG/10 ML VIAL IV ONE (17:10)
[2020-07-21] MEDS ORDERED: ISOVUE-370 200 ML INFUS..BTL ONE (17:10)
[2020-07-21] MEDS ORDERED: Heparin 1,000 UNITS/500 mL 500 ML ONE (17:10)
[2020-07-21] MEDS ORDERED: *HR* Heparin 10,000 UNIT/10 ML VIAL ONE (17:10)
[2020-07-21] MEDS ORDERED: 0.9 % Sodium Chloride 1,000 ML ONE (17:10)
[2020-07-21] MEDS ORDERED: *HR* FentaNYL (PF) 100 MCG/2 ML VIAL ONE (17:37)
[2020-07-21] MEDS ORDERED: *HR* Midazolam HCl 2 MG/2 ML VIAL ONE (17:38)
[2020-07-21] MEDS ORDERED: 0.9 % Sodium Chloride 1,000 ML IVC SCH (18:30)
[2020-07-21] MEDS: Pantoprazole 40 MG VIAL IVP SCH (18:41)
[2020-07-21] MEDS: clonazePAM 0.5 MG TABLET PO SCH (19:20)
[2020-07-22 03:11] LABS: Basophils % 0.4 %; Eosinophils # 0.2 K/mcL (0.0-0.6); Eosinophils % 3.7 %; Hematocrit 30.7 % (35.3-44.9); Hemoglobin 9.2 g/dL (11.5-15.4); Immature Granulocytes % 0.4 % (0-4); Lymphocytes # 1.9 K/mcL (0.6-4.6); Lymphocytes % 32.9 %; Mean Corpuscular Hemoglobin 27.4 pg (28.0-33.3); Mean Corpuscular Volume 91.4 fL (83.0-100.0); Mean Platelet Volume 10.3 fL (9.4-12.4); Monocytes # 0.4 K/mcL (0.0-1.3); Monocytes % 7.6 %; Neutrophils # 3.1 K/mcL (1.6-8.9); Platelet Count 251 K/mcL (140-400); Red Blood Count 3.36 M/mcL (3.82-4.97); Red Cell Distribution Width 15.2 % (11.5-14.5); White Blood Count 5.6 K/mcL (4.3-11.1)
[2020-07-22 03:16] LABS: BUN/Creatinine Ratio 15 (6-26); Blood Urea Nitrogen 16 mg/dL (8-23); Calcium 8.5 mg/dL (8.6-10.3); Carbon Dioxide 27 mEq/L (23-29); Chloride 107 mEq/L (98-107); Glucose 139 mg/dL (70-105); Osmolality,Calculated 291 (280-300); Sodium 139 mEq/L (136-145); eGFR For African Americans > 60 (> 60); eGFR For Non-African Americans 51 (> 60)
[2020-07-22] MEDS: Pantoprazole 40 MG VIAL IVP SCH (05:26)
[2020-07-22 06:58] VITALS: BP 126/70
[2020-07-22] MEDS: Insulin LISPRO 300 UNITS/3 ML VIAL SQ SCH (08:15)
[2020-07-22] MEDS: clonazePAM 1 MG TABLET PO SCH (08:19)
[2020-07-22] MEDS: Aspirin Enteric Coated 81 MG Tablet PO SCH (08:19)
[2020-07-22] MEDS: Cyanocobalamin (B-12) 1,000 MCG TABLET PO SCH (08:19)
[2020-07-22] MEDS ORDERED: FLU Vac QV 20-21 (6Month+)/PF 0.5 ML SYRINGE IM ONE (10:20)
== END 2020-07-22 12:45 | disposition home or self-care (01) | DRG 282 ==
LOC: EMEROOARM 02:39 → 2ANU 02:39 → SUATTDRO 04:06 → 2ANU 05:02
PROVIDERS: ADMIT Student in an Organized Health Care Education/Training Program; ATTEND Internal Medicine

== ENCOUNTER 2020-10-11 17:35 | Inpatient (IN) ==
[2020-10-11] MEDS ORDERED: Isovue-370 500 ML BOTTLE IVP ONE (18:20)
[2020-10-11 19:59] LABS: Basophils # 0.1 K/mcL (0.0-0.2); Basophils % 0.5 %; Eosinophils # 0.2 K/mcL (0.0-0.6); Eosinophils % 1.6 %; Hematocrit 40.6 % (35.3-44.9); Hemoglobin 12.9 g/dL (11.5-15.4); Immature Granulocytes % 0.3 % (0-4); Lymphocytes # 2.8 K/mcL (0.6-4.6); Lymphocytes % 29.3 %; Mean Corpuscular HGB Conc 31.8 g/dL (31.6-35.5); Mean Corpuscular Hemoglobin 28.1 pg (28.0-33.3); Mean Corpuscular Volume 88.5 fL (83.0-100.0); Mean Platelet Volume 11.4 fL (9.4-12.4); Monocytes # 0.8 K/mcL (0.0-1.3); Monocytes % 8.3 %; Neutrophils # 5.8 K/mcL (1.6-8.9); Platelet Count 221 K/mcL (140-400); Red Blood Count 4.59 M/mcL (3.82-4.97); White Blood Count 9.6 K/mcL (4.3-11.1)
[2020-10-11 20:05] LABS: Prothrombin Time 11.6 Seconds (9.4-12.1)
[2020-10-11 20:08] LABS: Activated Partial Thrombo Time 28.1 Seconds (26.0-36.0)
[2020-10-11 20:33] LABS: BUN/Creatinine Ratio 14 (6-26); Blood Urea Nitrogen 14 mg/dL (8-23); Calcium 9.1 mg/dL (8.6-10.3); Carbon Dioxide 25 mEq/L (23-29); Chloride 108 mEq/L (98-107); Glucose 104 mg/dL (70-105); Osmolality,Calculated 297 (280-300); Potassium 3.3 mEq/L (3.5-5.1); Sodium 143 mEq/L (136-145); Troponin I 0.67 ng/mL (< 0.04); eGFR For African Americans > 60 (> 60); eGFR For Non-African Americans 57 (> 60)
[2020-10-11] MEDS ORDERED: *HR* Heparin 5,000 UNIT/ML VIAL IVP PRN (20:51)
[2020-10-11] MEDS ORDERED: *HR* Heparin 5,000 UNIT/ML VIAL IVP ONE (20:51)
[2020-10-11] MEDS ORDERED: Aspirin 81 MG TAB.CHEW PO ONE ×2 (20:53→21:08)
[2020-10-11] MEDS: Heparin 25,000UNIT/250ML 1/2NS 25,000 UNIT/250 ML IV.SOLN IVC SCH (21:13)
[2020-10-11 21:15] LABS: Hematocrit 36.8 % (35.3-44.9); Hemoglobin 11.8 g/dL (11.5-15.4); Mean Corpuscular HGB Conc 32.1 g/dL (31.6-35.5); Mean Corpuscular Hemoglobin 28.7 pg (28.0-33.3); Mean Corpuscular Volume 89.5 fL (83.0-100.0); Mean Platelet Volume 10.5 fL (9.4-12.4); Platelet Count 200 K/mcL (140-400); Red Blood Count 4.11 M/mcL (3.82-4.97); Red Cell Distribution Width 13.9 % (11.5-14.5); White Blood Count 8.7 K/mcL (4.3-11.1)
[2020-10-11 21:26] LABS: INR 1.1; Prothrombin Time 12.6 Seconds (9.4-12.1)
[2020-10-11 21:47] LABS: Heparin anti-factor XA UFH < 0.04 IU/mL (0.30-0.70)
[2020-10-11] MEDS ORDERED: Morphine Sulfate 2 MG/ML SYRINGE IVP PRN (23:32)
[2020-10-11] MEDS ORDERED: Nitroglycerin 0.4 MG TAB.SUBL SL PRN (23:32)
[2020-10-12 00:11] LABS: Adenovirus Not Detected (Not Detect); Coronavirus 229E Not Detected (Not Detect); Coronavirus HKU1 Not Detected (Not Detect); Coronavirus NL63 Not Detected (Not Detect); Coronavirus OC43 Not Detected (Not Detect)
[2020-10-12 00:12] LABS: Bordetella Pertussis Not Detected (Not Detect); Chlamydophila pneumoniae Not Detected (Not Detect); Human Metapneumovirus Not Detected (Not Detect); Human Rhinovirus/Enterovirus Not Detected (Not Detect); Influenza A Subtype 2009 H1 Not Detected (Not Detect); Influenza B Not Detected (Not Detect); Mycoplasma pneumoniae Not Detected (Not Detect); Parainfluenza Virus 1 Not Detected (Not Detect); Parainfluenza Virus 2 Not Detected (Not Detect); Parainfluenza Virus 3 Not Detected (Not Detect); Parainfluenza Virus 4 Not Detected (Not Detect); Respiratory Syncytial Virus Not Detected (Not Detect); SARS-CoV-2 DETECTED (Not Detect)
[2020-10-12] MEDS ORDERED: Sennosides 8.6 MG TABLET PO PRN (02:22)
[2020-10-12] MEDS ORDERED: Nitroglycerin 0.4 MG TAB.SUBL SL PRN (02:22)
[2020-10-12] MEDS ORDERED: Dextrose Gel 15 GM/37.5 ML TUBE PO PRN ×2 (02:28)
[2020-10-12] MEDS ORDERED: D5% in Water 1,000 ML IVC PRN (02:28)
[2020-10-12] MEDS ORDERED: *HR* Dextrose 50 % in Water (Vial) 50 ML VIAL IVP PRN (02:28)
[2020-10-12 03:16] LABS: Basophils # 0.1 K/mcL (0.0-0.2); Basophils % 0.8 %; Eosinophils # 0.2 K/mcL (0.0-0.6); Eosinophils % 2.2 %; Hematocrit 37.4 % (35.3-44.9); Hemoglobin 11.8 g/dL (11.5-15.4); Immature Granulocytes % 0.3 % (0-4); Lymphocytes # 2.4 K/mcL (0.6-4.6); Lymphocytes % 30.7 %; Mean Corpuscular HGB Conc 31.6 g/dL (31.6-35.5); Mean Corpuscular Volume 88.6 fL (83.0-100.0); Mean Platelet Volume 10.9 fL (9.4-12.4); Monocytes # 0.8 K/mcL (0.0-1.3); Monocytes % 9.5 %; Neutrophils # 4.5 K/mcL (1.6-8.9); Platelet Count 184 K/mcL (140-400); Red Blood Count 4.22 M/mcL (3.82-4.97); Red Cell Distribution Width 13.9 % (11.5-14.5); Segmented Neutrophils % 56.5 %; White Blood Count 7.9 K/mcL (4.3-11.1)
[2020-10-12 03:36] LABS: BUN/Creatinine Ratio 13 (6-26); Blood Urea Nitrogen 14 mg/dL (8-23); Calcium 8.9 mg/dL (8.6-10.3); Carbon Dioxide 31 mEq/L (23-29); Chloride 105 mEq/L (98-107); Chol/HDL Ratio 2.7 (0-4.9); Cholesterol 82 mg/dL (< 200); Glucose 176 mg/dL (70-105); HDL Cholesterol 30 mg/dL (40-59); LDL Cholesterol,Calculated 5 mg/dL (< 100); Osmolality,Calculated 297 (280-300); Potassium 2.9 mEq/L (3.5-5.1); Sodium 141 mEq/L (136-145); Triglycerides 237 mg/dL (< 150); eGFR For African Americans > 60 (> 60); eGFR For Non-African Americans 51 (> 60)
[2020-10-12] MEDS: Insulin LISPRO 300 UNITS/3 ML VIAL SUBQ SCH ×5 (04:59→20:29)
[2020-10-12] MEDS ORDERED: Potassium Chloride 40 MEQ, Lidocaine 1% 2 ML in 0.9 % Sodium Chloride 500 ML IVPB ONE (07:53)
[2020-10-12] MEDS ORDERED: Aspirin 81 MG TAB.CHEW PO SCH (09:00)
[2020-10-12] MEDS: carvediloL 6.25 MG TABLET PO SCH ×2 (09:01→16:39)
[2020-10-12] MEDS: lisinopriL 10 MG TABLET PO SCH (09:02)
[2020-10-12] MEDS: Pantoprazole 40 MG VIAL IVP SCH (09:02)
[2020-10-12] MEDS: Cyanocobalamin (B-12) 1,000 MCG TABLET PO SCH (09:07)
[2020-10-12] MEDS: clonazePAM 0.5 MG TABLET PO SCH ×2 (09:07→20:18)
[2020-10-12] MEDS: Loratadine 10 MG TABLET PO SCH (09:07)
[2020-10-12] MEDS: *HR* Heparin 5,000 UNIT/ML VIAL IVP PRN ×2 (10:42→20:40)
[2020-10-12] MEDS: Acetaminophen 325 MG TABLET PO PRN (11:09)
[2020-10-12] MEDS: Ipratropium 1 PUFF INHALER IH SCH ×4 (12:24→23:51)
[2020-10-12 15:39] LABS: BUN/Creatinine Ratio 12 (6-26); Blood Urea Nitrogen 11 mg/dL (8-23); Calcium 9.2 mg/dL (8.6-10.3); Carbon Dioxide 28 mEq/L (23-29); Chloride 108 mEq/L (98-107); Glucose 107 mg/dL (70-105); Osmolality,Calculated 292 (280-300); Sodium 141 mEq/L (136-145); eGFR For African Americans > 60 (> 60); eGFR For Non-African Americans 58 (> 60)
[2020-10-12] MEDS ORDERED: *HR* LORazepam 2 MG/ML VIAL IVP PRN (18:40)
[2020-10-12] MEDS: Aspirin Enteric Coated 81 MG Tablet PO SCH (20:18)
[2020-10-12] MEDS: Heparin 25,000UNIT/250ML 1/2NS 25,000 UNIT/250 ML IV.SOLN IVC SCH (21:57)
[2020-10-13] MEDS: Insulin LISPRO 300 UNITS/3 ML VIAL SUBQ SCH ×6 (02:43→20:38)
[2020-10-13 03:52] LABS: Basophils % 0.6 %; Eosinophils # 0.2 K/mcL (0.0-0.6); Hematocrit 39.1 % (35.3-44.9); Hemoglobin 12.7 g/dL (11.5-15.4); Immature Granulocytes % 0.1 % (0-4); Lymphocytes # 2.2 K/mcL (0.6-4.6); Mean Corpuscular HGB Conc 32.5 g/dL (31.6-35.5); Mean Corpuscular Hemoglobin 28.8 pg (28.0-33.3); Mean Corpuscular Volume 88.7 fL (83.0-100.0); Monocytes # 0.6 K/mcL (0.0-1.3); Monocytes % 8.2 %; Neutrophils # 3.9 K/mcL (1.6-8.9); Platelet Count 190 K/mcL (140-400); Red Blood Count 4.41 M/mcL (3.82-4.97); Segmented Neutrophils % 56.1 %; White Blood Count 6.9 K/mcL (4.3-11.1)
[2020-10-13] MEDS: Ipratropium 1 PUFF INHALER IH SCH ×5 (04:05→20:23)
[2020-10-13 04:09] LABS: BUN/Creatinine Ratio 14 (6-26); Blood Urea Nitrogen 13 mg/dL (8-23); Carbon Dioxide 28 mEq/L (23-29); Chloride 107 mEq/L (98-107); Glucose 125 mg/dL (70-105); Magnesium 1.9 mg/dL (1.6-2.6); Osmolality,Calculated 292 (280-300); Potassium 3.5 mEq/L (3.5-5.1); Sodium 140 mEq/L (136-145); eGFR For African Americans > 60 (> 60); eGFR For Non-African Americans 58 (> 60)
[2020-10-13 04:13] LABS: Troponin I 0.76 ng/mL (< 0.04)
[2020-10-13 04:25] LABS: Thyroid Stimulating Hormone 0.845 mcIU/mL (0.340-5.600)
[2020-10-13] MEDS: clonazePAM 0.5 MG TABLET PO SCH ×2 (08:27→19:38)
[2020-10-13] MEDS: lisinopriL 10 MG TABLET PO SCH (08:27)
[2020-10-13] MEDS: carvediloL 6.25 MG TABLET PO SCH ×2 (08:27→16:30)
[2020-10-13] MEDS: Loratadine 10 MG TABLET PO SCH (08:27)
[2020-10-13] MEDS: Cyanocobalamin (B-12) 1,000 MCG TABLET PO SCH (08:27)
[2020-10-13] MEDS: Pantoprazole 40 MG VIAL IVP SCH (08:27)
[2020-10-13] MEDS ORDERED: *HR* Dextrose 50 % in Water (Vial) 50 ML VIAL IVP PRN (10:23)
[2020-10-13] MEDS ORDERED: D5% in Water 1,000 ML IVC PRN (10:23)
[2020-10-13] MEDS ORDERED: Dextrose Gel 15 GM/37.5 ML TUBE PO PRN ×2 (10:23)
[2020-10-13] MEDS: Heparin 25,000UNIT/250ML 1/2NS 25,000 UNIT/250 ML IV.SOLN IVC SCH (16:31)
[2020-10-13] MEDS: Aspirin Enteric Coated 81 MG Tablet PO SCH (19:38)
[2020-10-13] MEDS: Acetaminophen 325 MG TABLET PO PRN (20:31)
[2020-10-14] MEDS: Ipratropium 1 PUFF INHALER IH SCH ×7 (00:33→23:56)
[2020-10-14] MEDS: *HR* Enoxaparin 40 MG/0.4 ML SYRINGE SQ SCH (05:35)
[2020-10-14 05:39] LABS: Basophils # 0.1 K/mcL (0.0-0.2); Basophils % 0.8 %; Eosinophils # 0.3 K/mcL (0.0-0.6); Eosinophils % 3.9 %; Hematocrit 39.7 % (35.3-44.9); Hemoglobin 12.5 g/dL (11.5-15.4); Immature Granulocytes % 0.2 % (0-4); Lymphocytes # 2.3 K/mcL (0.6-4.6); Lymphocytes % 35.9 %; Mean Corpuscular HGB Conc 31.5 g/dL (31.6-35.5); Mean Corpuscular Hemoglobin 27.7 pg (28.0-33.3); Mean Platelet Volume 10.8 fL (9.4-12.4); Monocytes # 0.6 K/mcL (0.0-1.3); Monocytes % 8.8 %; Neutrophils # 3.2 K/mcL (1.6-8.9); Platelet Count 210 K/mcL (140-400); Red Blood Count 4.51 M/mcL (3.82-4.97); Red Cell Distribution Width 14.1 % (11.5-14.5); Segmented Neutrophils % 50.4 %; White Blood Count 6.3 K/mcL (4.3-11.1)
[2020-10-14 06:08] LABS: BUN/Creatinine Ratio 16 (6-26); Blood Urea Nitrogen 16 mg/dL (8-23); Calcium 9.5 mg/dL (8.6-10.3); Carbon Dioxide 27 mEq/L (23-29); Chloride 106 mEq/L (98-107); Glucose 107 mg/dL (70-105); Magnesium 1.9 mg/dL (1.6-2.6); Osmolality,Calculated 294 (280-300); Potassium 3.5 mEq/L (3.5-5.1); Sodium 141 mEq/L (136-145); eGFR For African Americans > 60 (> 60); eGFR For Non-African Americans 56 (> 60)
[2020-10-14] MEDS ORDERED: Perflutren Lipid Microsphere 1.3 ML in 0.9 % Sodium Chloride 8.7 ML IVP PRN (07:50)
[2020-10-14] MEDS: Cyanocobalamin (B-12) 1,000 MCG TABLET PO SCH (09:19)
[2020-10-14] MEDS: clonazePAM 0.5 MG TABLET PO SCH ×2 (09:19→19:50)
[2020-10-14] MEDS: lisinopriL 10 MG TABLET PO SCH (09:19)
[2020-10-14] MEDS: carvediloL 6.25 MG TABLET PO SCH ×2 (09:19→16:48)
[2020-10-14] MEDS: Loratadine 10 MG TABLET PO SCH (09:19)
[2020-10-14] MEDS: Pantoprazole 40 MG VIAL IVP SCH (09:20)
[2020-10-14] MEDS: Insulin LISPRO 300 UNITS/3 ML VIAL SUBQ SCH ×4 (09:20→19:47)
[2020-10-14] MEDS: Aspirin Enteric Coated 81 MG Tablet PO SCH (19:50)
[2020-10-15] MEDS: Ipratropium 1 PUFF INHALER IH SCH ×2 (04:24→08:18)
[2020-10-15] MEDS: *HR* Enoxaparin 40 MG/0.4 ML SYRINGE SQ SCH (05:44)
[2020-10-15 08:18] VITALS: BP 141/76
[2020-10-15] MEDS: Insulin LISPRO 300 UNITS/3 ML VIAL SUBQ SCH (08:19)
[2020-10-15] MEDS: clonazePAM 0.5 MG TABLET PO SCH (08:33)
[2020-10-15] MEDS: Loratadine 10 MG TABLET PO SCH (08:34)
[2020-10-15] MEDS: Pantoprazole 40 MG VIAL IVP SCH (08:34)
[2020-10-15] MEDS: lisinopriL 10 MG TABLET PO SCH (08:34)
[2020-10-15] MEDS: carvediloL 6.25 MG TABLET PO SCH (08:34)
[2020-10-15] MEDS: Cyanocobalamin (B-12) 1,000 MCG TABLET PO SCH (08:34)
== END 2020-10-15 09:05 | disposition home or self-care (01) | DRG 177 ==
LOC: 3BNU 17:35 → EMEROOARM 17:35 → SUATTDRO 22:55 → 2NENU 10-12 00:22
PROVIDERS: ADMIT Student in an Organized Health Care Education/Training Program; ATTEND Pharmacist

== ENCOUNTER 2020-11-29 01:42 | Observation (INO) ==
[2020-11-29 02:40] LABS: Basophils # 0.1 K/mcL (0.0-0.2); Basophils % 0.6 %; Eosinophils # 0.2 K/mcL (0.0-0.6); Eosinophils % 1.9 %; Hematocrit 39.3 % (35.3-44.9); Hemoglobin 12.7 g/dL (11.5-15.4); Immature Granulocytes % 0.4 % (0-4); Lymphocytes # 2.6 K/mcL (0.6-4.6); Lymphocytes % 28.5 %; Mean Corpuscular HGB Conc 32.3 g/dL (31.6-35.5); Mean Corpuscular Hemoglobin 28.9 pg (28.0-33.3); Mean Corpuscular Volume 89.5 fL (83.0-100.0); Mean Platelet Volume 10.3 fL (9.4-12.4); Monocytes # 0.8 K/mcL (0.0-1.3); Monocytes % 8.6 %; Neutrophils # 5.4 K/mcL (1.6-8.9); Platelet Count 219 K/mcL (140-400); Red Blood Count 4.39 M/mcL (3.82-4.97); Red Cell Distribution Width 13.8 % (11.5-14.5)
[2020-11-29 02:45] LABS: Prothrombin Time 11.4 Seconds (9.4-12.1)
[2020-11-29 02:48] LABS: Activated Partial Thrombo Time 30.2 Seconds (26.0-36.0)
[2020-11-29 03:01] LABS: BUN/Creatinine Ratio 17 (6-26); Blood Urea Nitrogen 14 mg/dL (8-23); Calcium 9.2 mg/dL (8.6-10.3); Carbon Dioxide 28 mEq/L (23-29); Chloride 103 mEq/L (98-107); Glucose 179 mg/dL (70-105); Osmolality,Calculated 293 (280-300); Potassium 3.3 mEq/L (3.5-5.1); Sodium 139 mEq/L (136-145); eGFR For African Americans > 60 (> 60); eGFR For Non-African Americans > 60 (> 60)
[2020-11-29 03:07] LABS: Troponin I 0.19 ng/mL (< 0.04)
[2020-11-29] MEDS ORDERED: *HR* Heparin 5,000 UNIT/ML VIAL IVP ONE (03:21)
[2020-11-29] MEDS ORDERED: *HR* Heparin 5,000 UNIT/ML VIAL IVP PRN ×2 (03:21)
[2020-11-29] MEDS ORDERED: Heparin 25,000UNIT/250ML 1/2NS 25,000 UNIT/250 ML IV.SOLN IVC SCH (03:30)
[2020-11-29] MEDS ORDERED: Ondansetron ODT 4 MG TAB.RAPDIS SL PRN (03:56)
[2020-11-29] MEDS ORDERED: Acetaminophen 325 MG TABLET PO PRN (03:56)
[2020-11-29] MEDS ORDERED: Naloxone 0.4 MG/ML INJ IVP PRN (03:56)
[2020-11-29] MEDS ORDERED: D5% in Water 1,000 ML IVC PRN (04:01)
[2020-11-29] MEDS ORDERED: *HR* Dextrose 50 % in Water (Vial) 50 ML VIAL IVP PRN (04:01)
[2020-11-29] MEDS ORDERED: Dextrose Gel 15 GM/37.5 ML TUBE PO PRN ×2 (04:01)
[2020-11-29] MEDS: Insulin LISPRO 300 UNITS/3 ML VIAL SUBQ SCH ×3 (05:23→11:56)
[2020-11-29 13:07] LABS: Thyroid Stimulating Hormone 0.282 mcIU/mL (0.340-5.600)
[2020-11-29] MEDS ORDERED: *HR* Rivaroxaban 10 MG TABLET PO SCH (15:00)
[2020-11-29 15:12] VITALS: BP 123/64
[2020-11-29 16:07] LABS: Triiodothyronine (T3) Free 2.67 pg/mL (2.50-3.90)
[2020-11-29] MEDS ORDERED: carvediloL 25 MG TABLET PO SCH (17:00)
== END 2020-11-29 17:02 | disposition home or self-care (01) ==
LOC: 3ANU 01:42 → EMEROOARM 01:42 → SUATTDRO 03:53 → 3ANU 04:45
PROVIDERS: ADMIT Internal Medicine; ATTEND Family Medicine

== ENCOUNTER 2020-11-30 23:32 | Observation (INO) ==
[2020-11-30] MEDS ORDERED: 0.9 % Sodium Chloride 1,000 ML IVC ONE (23:51)
[2020-12-01 00:05] LABS: Bilirubin,Urine Negative (Negative); Blood,Urine Negative (Negative); Clarity,Urine Clear (Clear); Color,Urine Colorless (Yellow); Glucose,Urine (UA) Normal (Normal); Ketones,Urine Negative (Negative); Leukocyte Esterase,Urine Negative (Negative); Nitrite,Urine Negative (Negative); Protein,Urine Trace mg/dL (Neg-Trace); Specific Gravity,Urine 1.005 (1.010-1.025); Urobilinogen,Urine Normal (Normal)
[2020-12-01 00:23] LABS: Basophils # 0.1 K/mcL (0.0-0.2); Basophils % 0.5 %; Eosinophils # 0.2 K/mcL (0.0-0.6); Eosinophils % 1.7 %; Hemoglobin 12.6 g/dL (11.5-15.4); Immature Granulocytes % 0.5 % (0-4); Lymphocytes # 2.8 K/mcL (0.6-4.6); Lymphocytes % 28.2 %; Mean Corpuscular HGB Conc 32.3 g/dL (31.6-35.5); Mean Corpuscular Hemoglobin 28.9 pg (28.0-33.3); Mean Corpuscular Volume 89.4 fL (83.0-100.0); Mean Platelet Volume 10.1 fL (9.4-12.4); Monocytes # 0.8 K/mcL (0.0-1.3); Monocytes % 7.6 %; Neutrophils # 6.1 K/mcL (1.6-8.9); Platelet Count 231 K/mcL (140-400); Red Blood Count 4.36 M/mcL (3.82-4.97); Red Cell Distribution Width 13.7 % (11.5-14.5); Segmented Neutrophils % 61.5 %; White Blood Count 9.9 K/mcL (4.3-11.1)
[2020-12-01 00:33] LABS: Prothrombin Time 11.7 Seconds (9.4-12.1)
[2020-12-01 00:36] LABS: Activated Partial Thrombo Time 30.7 Seconds (26.0-36.0)
[2020-12-01 00:38] LABS: Calcium 8.8 mg/dL (8.6-10.3); Magnesium 1.4 mg/dL (1.6-2.6); Potassium 3.6 mEq/L (3.5-5.1)
[2020-12-01 00:43] LABS: Troponin I 0.22 ng/mL (< 0.04)
[2020-12-01 00:54] LABS: Thyroid Stimulating Hormone 0.511 mcIU/mL (0.340-5.600)
[2020-12-01] MEDS ORDERED: Acetaminophen 325 MG TABLET PO PRN (02:45)
[2020-12-01] MEDS ORDERED: Naloxone 0.4 MG/ML INJ IVP PRN (02:45)
[2020-12-01] MEDS ORDERED: Ondansetron 4 MG/2 ML VIAL IVP PRN (02:45)
[2020-12-01] MEDS ORDERED: Melatonin 3 MG TABLET PO PRN (02:45)
[2020-12-01] MEDS ORDERED: Dextrose Gel 15 GM/37.5 ML TUBE PO PRN ×2 (05:42)
[2020-12-01] MEDS ORDERED: D5% in Water 1,000 ML IVC PRN (05:42)
[2020-12-01] MEDS ORDERED: *HR* Dextrose 50 % in Water (Vial) 50 ML VIAL IVP PRN (05:42)
[2020-12-01] MEDS: Insulin LISPRO 300 UNITS/3 ML VIAL SUBQ SCH ×2 (05:45→12:33)
[2020-12-01 06:16] LABS: Troponin I 0.19 ng/mL (< 0.04)
[2020-12-01 06:23] LABS: Alanine Aminotransferase 7 Units/L (7-52); Albumin 3.2 g/dL (3.5-5.7); Albumin/Globulin Ratio 1.5 (1.1-2.2); Alkaline Phosphatase 66 Units/L (34-104); Aspartate Amino Transferase 9 Units/L (13-39); BUN/Creatinine Ratio 13 (6-26); Bilirubin,Total 0.2 mg/dL (0.3-1.0); Blood Urea Nitrogen 13 mg/dL (8-23); Calcium 8.4 mg/dL (8.6-10.3); Carbon Dioxide 28 mEq/L (23-29); Chloride 108 mEq/L (98-107); Globulin 2.2 g/dL (2.4-3.5); Glucose 115 mg/dL (70-105); Magnesium 1.7 mg/dL (1.6-2.6); Osmolality,Calculated 293 (280-300); Phosphorous 4.4 mg/dL (2.7-4.5); Potassium 3.9 mEq/L (3.5-5.1); Sodium 141 mEq/L (136-145); Total Protein 5.4 g/dL (6.4-8.9); eGFR For African Americans > 60 (> 60); eGFR For Non-African Americans 52 (> 60)
[2020-12-01 07:18] LABS: Basophils # 0.1 K/mcL (0.0-0.2); Basophils % 0.7 %; Eosinophils # 0.1 K/mcL (0.0-0.6); Eosinophils % 1.6 %; Hematocrit 35.2 % (35.3-44.9); Hemoglobin 11.2 g/dL (11.5-15.4); Immature Granulocytes % 0.3 % (0-4); Lymphocytes # 2.3 K/mcL (0.6-4.6); Lymphocytes % 31.6 %; Mean Corpuscular HGB Conc 31.8 g/dL (31.6-35.5); Mean Corpuscular Hemoglobin 28.9 pg (28.0-33.3); Mean Corpuscular Volume 90.7 fL (83.0-100.0); Mean Platelet Volume 10.4 fL (9.4-12.4); Monocytes # 0.6 K/mcL (0.0-1.3); Monocytes % 7.8 %; Neutrophils # 4.2 K/mcL (1.6-8.9); Platelet Count 198 K/mcL (140-400); Red Blood Count 3.88 M/mcL (3.82-4.97); Red Cell Distribution Width 13.8 % (11.5-14.5); White Blood Count 7.3 K/mcL (4.3-11.1)
[2020-12-01] MEDS: lisinopriL 10 MG TABLET PO SCH (12:38)
[2020-12-01] MEDS: *HR* Amiodarone 200 MG TABLET PO SCH ×2 (14:28→20:16)
[2020-12-01] MEDS ORDERED: *HR* Rivaroxaban 10 MG TABLET PO SCH (17:00)
[2020-12-01] MEDS ORDERED: carvediloL 25 MG TABLET PO SCH (17:00)
[2020-12-01] MEDS: carvediloL 6.25 MG TABLET PO SCH (18:02)
[2020-12-01] MEDS ORDERED: Insulin LISPRO 300 UNITS/3 ML VIAL SUBQ SCH ×2 (21:00)
[2020-12-01] MEDS ORDERED: clonazePAM 0.5 MG TABLET PO SCH (22:00)
[2020-12-02 06:42] LABS: Hematocrit 42.4 % (35.3-44.9); Mean Corpuscular HGB Conc 31.8 g/dL (31.6-35.5); Mean Corpuscular Hemoglobin 28.8 pg (28.0-33.3); Mean Corpuscular Volume 90.6 fL (83.0-100.0); Mean Platelet Volume 9.9 fL (9.4-12.4); Platelet Count 217 K/mcL (140-400); Red Blood Count 4.68 M/mcL (3.82-4.97); Red Cell Distribution Width 13.6 % (11.5-14.5); White Blood Count 7.8 K/mcL (4.3-11.1)
[2020-12-02 06:44] LABS: Hemoglobin 13.5 g/dL (11.5-15.4)
[2020-12-02 07:01] LABS: BUN/Creatinine Ratio 17 (6-26); Blood Urea Nitrogen 16 mg/dL (8-23); Calcium 9.5 mg/dL (8.6-10.3); Carbon Dioxide 29 mEq/L (23-29); Chloride 106 mEq/L (98-107); Glucose 137 mg/dL (70-105); Magnesium 1.8 mg/dL (1.6-2.6); Osmolality,Calculated 295 (280-300); Sodium 141 mEq/L (136-145); eGFR For African Americans > 60 (> 60); eGFR For Non-African Americans 58 (> 60)
[2020-12-02] MEDS ORDERED: Sennosides 8.6 MG TABLET PO PRN (07:08)
[2020-12-02] MEDS ORDERED: hydrOXYzine pamoate 25 MG CAPSULE PO PRN (07:08)
[2020-12-02] MEDS: Insulin LISPRO 300 UNITS/3 ML VIAL SUBQ SCH ×2 (08:13→11:45)
[2020-12-02] MEDS ORDERED: Loratadine 10 MG TABLET PO SCH (09:00)
[2020-12-02] MEDS: *HR* Amiodarone 200 MG TABLET PO SCH (09:53)
[2020-12-02] MEDS: carvediloL 6.25 MG TABLET PO SCH (09:53)
[2020-12-02] MEDS: lisinopriL 10 MG TABLET PO SCH (09:53)
[2020-12-02 10:59] VITALS: BP 122/61
[2020-12-02] MEDS ORDERED: Aspirin Enteric Coated 81 MG Tablet PO SCH (21:00)
== END 2020-12-02 12:35 | disposition home or self-care (01) ==
LOC: EMEROOARM 23:32 → 2ANU 23:32 → SUATTDRO 12-01 01:27 → 2ANU 12-01 02:44
PROVIDERS: ADMIT Family Medicine; ATTEND Internal Medicine

== ENCOUNTER 2021-01-03 15:03 | Observation (INO) ==
[2021-01-03] MEDS ORDERED: 0.9 % Sodium Chloride 500 ML IVC ONE (15:13)
[2021-01-03] MEDS ORDERED: 0.9 % Sodium Chloride 1,000 ML IVC ONE (15:22)
[2021-01-03 15:43] LABS: Basophils # 0.1 K/mcL (0.0-0.2); Basophils % 0.3 %; Eosinophils % 0.1 %; Hematocrit 30.1 % (35.3-44.9); Hemoglobin 9.8 g/dL (11.5-15.4); Immature Granulocytes % 0.4 % (0-4); Lymphocytes # 1.6 K/mcL (0.6-4.6); Lymphocytes % 10.1 %; Mean Corpuscular HGB Conc 32.6 g/dL (31.6-35.5); Mean Corpuscular Hemoglobin 29.2 pg (28.0-33.3); Mean Corpuscular Volume 89.6 fL (83.0-100.0); Mean Platelet Volume 10.5 fL (9.4-12.4); Monocytes # 1.1 K/mcL (0.0-1.3); Monocytes % 6.5 %; Neutrophils # 13.4 K/mcL (1.6-8.9); Platelet Count 234 K/mcL (140-400); Red Blood Count 3.36 M/mcL (3.82-4.97); Red Cell Distribution Width 13.9 % (11.5-14.5); Segmented Neutrophils % 82.6 %; White Blood Count 16.2 K/mcL (4.3-11.1)
[2021-01-03 15:50] LABS: INR 1.6; Prothrombin Time 17.8 Seconds (9.4-12.1)
[2021-01-03 15:53] LABS: Activated Partial Thrombo Time 31.4 Seconds (26.0-36.0)
[2021-01-03 16:04] LABS: Calcium 8.9 mg/dL (8.6-10.3); Potassium 3.9 mEq/L (3.5-5.1)
[2021-01-03 16:14] LABS: Troponin I 0.08 ng/mL (< 0.04)
[2021-01-03 17:42] LABS: Bilirubin,Urine Negative (Negative); Blood,Urine Small (Negative); Clarity,Urine Clear (Clear); Color,Urine Yellow (Yellow); Glucose,Urine (UA) Normal (Normal); Ketones,Urine Negative (Negative); Leukocyte Esterase,Urine Negative (Negative); Mucus,Urine Few per lpf (None-Few); Nitrite,Urine Negative (Negative); Protein,Urine 50 mg/dL (Neg-Trace); RBC,Urine 0-3 per hpf (0-3); Specific Gravity,Urine 1.017 (1.010-1.025); Squamous Epithelial Cell,Urine Few per hpf (None-Few); Urobilinogen,Urine Normal (Normal)
[2021-01-03] MEDS ORDERED: Naloxone 0.4 MG/ML INJ IVP PRN (18:02)
[2021-01-03] MEDS ORDERED: Dextrose Gel 15 GM/37.5 ML TUBE PO PRN ×2 (18:50)
[2021-01-03] MEDS ORDERED: D5% in Water 1,000 ML IVC PRN (18:50)
[2021-01-03] MEDS ORDERED: *HR* Dextrose 50 % in Water (Vial) 50 ML VIAL IVP PRN (18:50)
[2021-01-03] MEDS ORDERED: *HR* HYDROcodone/Acet 5/325 mg TABLET PO PRN (19:00)
[2021-01-03] MEDS ORDERED: Aspirin Enteric Coated 81 MG Tablet PO SCH (21:00)
[2021-01-03] MEDS ORDERED: Insulin LISPRO 300 UNITS/3 ML VIAL SUBQ SCH (21:00)
[2021-01-03] MEDS: carvediloL 6.25 MG TABLET PO SCH (21:17)
[2021-01-03] MEDS: Acetaminophen 325 MG TABLET PO PRN (23:58)
[2021-01-04 03:20] LABS: Basophils % 0.5 %; Eosinophils # 0.1 K/mcL (0.0-0.6); Eosinophils % 0.6 %; Hematocrit 26.4 % (35.3-44.9); Hemoglobin 8.7 g/dL (11.5-15.4); Immature Granulocytes % 0.5 % (0-4); Lymphocytes # 2.5 K/mcL (0.6-4.6); Lymphocytes % 28.9 %; Mean Corpuscular Hemoglobin 29.9 pg (28.0-33.3); Mean Corpuscular Volume 90.7 fL (83.0-100.0); Monocytes # 0.9 K/mcL (0.0-1.3); Monocytes % 10.5 %; Neutrophils # 5.1 K/mcL (1.6-8.9); Platelet Count 180 K/mcL (140-400); Red Blood Count 2.91 M/mcL (3.82-4.97); Red Cell Distribution Width 13.9 % (11.5-14.5); White Blood Count 8.6 K/mcL (4.3-11.1)
[2021-01-04] MEDS: Acetaminophen 325 MG TABLET PO PRN (07:09)
[2021-01-04] MEDS ORDERED: Potassium Chloride 40 MEQ, Lidocaine 1% 2 ML in 0.9 % Sodium Chloride 500 ML IVPB ONE (08:08)
[2021-01-04] MEDS: Insulin LISPRO 300 UNITS/3 ML VIAL SUBQ SCH ×2 (08:15→11:06)
[2021-01-04] MEDS: carvediloL 6.25 MG TABLET PO SCH (08:39)
[2021-01-04] MEDS ORDERED: Cyanocobalamin (B-12) 1,000 MCG TABLET PO SCH (09:00)
[2021-01-04] MEDS ORDERED: *HR* Amiodarone 200 MG TABLET PO SCH (09:00)
[2021-01-04] MEDS ORDERED: 0.9 % Sodium Chloride 1,000 ML IVC SCH (14:00)
[2021-01-04 14:57] LABS: Hematocrit 26.8 % (35.3-44.9); Hemoglobin 8.6 g/dL (11.5-15.4); Mean Corpuscular HGB Conc 32.1 g/dL (31.6-35.5); Mean Corpuscular Hemoglobin 29.7 pg (28.0-33.3); Mean Corpuscular Volume 92.4 fL (83.0-100.0); Mean Platelet Volume 11.1 fL (9.4-12.4); Platelet Count 190 K/mcL (140-400); White Blood Count 7.9 K/mcL (4.3-11.1)
[2021-01-04] MEDS ORDERED: carvediloL 6.25 MG TABLET PO SCH (17:00)
[2021-01-04 17:01] VITALS: BP 106/58
== END 2021-01-04 17:37 | disposition home or self-care (01) ==
LOC: 2ANU 15:03 → EMEROOARM 15:03 → SUATTDRO 20:03 → 2ANU 20:50
PROVIDERS: ADMIT Internal Medicine; ATTEND Internal Medicine

== ENCOUNTER 2021-04-10 09:34 | Inpatient (IN) ==
[2021-04-10] MEDS ORDERED: Isovue-370 500 ML BOTTLE IVP ONE (10:43)
[2021-04-10] MEDS ORDERED: 0.9 % Sodium Chloride 1,000 ML IVC ONE (10:43)
[2021-04-10] MEDS ORDERED: *HR* HYDROmorphone (PF) 1 MG/ML SYRINGE IVP ONE ×3 (10:43→17:41)
[2021-04-10 11:10] LABS: Basophils % 0.3 %; Eosinophils % 0.3 %; Hematocrit 37.6 % (35.3-44.9); Hemoglobin 11.8 g/dL (11.5-15.4); Immature Granulocytes % 0.3 % (0-4); Lymphocytes # 1.1 K/mcL (0.6-4.6); Lymphocytes % 9.4 %; Mean Corpuscular HGB Conc 31.4 g/dL (31.6-35.5); Mean Corpuscular Hemoglobin 28.7 pg (28.0-33.3); Mean Corpuscular Volume 91.5 fL (83.0-100.0); Mean Platelet Volume 10.2 fL (9.4-12.4); Monocytes # 0.6 K/mcL (0.0-1.3); Monocytes % 5.4 %; Neutrophils # 9.6 K/mcL (1.6-8.9); Platelet Count 199 K/mcL (140-400); Red Blood Count 4.11 M/mcL (3.82-4.97); Red Cell Distribution Width 13.6 % (11.5-14.5); Segmented Neutrophils % 84.3 %; White Blood Count 11.5 K/mcL (4.3-11.1)
[2021-04-10 11:27] LABS: BUN/Creatinine Ratio 16 (6-26); Blood Urea Nitrogen 17 mg/dL (8-23); Calcium 8.9 mg/dL (8.6-10.3); Carbon Dioxide 30 mEq/L (23-29); Chloride 105 mEq/L (98-107); Creatine Kinase 70 Units/L (30-223); Glucose 151 mg/dL (70-105); Osmolality,Calculated 294 (280-300); Potassium 3.5 mEq/L (3.5-5.1); Sodium 140 mEq/L (136-145); eGFR For African Americans > 60 (> 60); eGFR For Non-African Americans 51 (> 60)
[2021-04-10 12:12] LABS: C-Reactive Protein 12 mg/L (Less than 10)
[2021-04-10] MEDS ORDERED: Gadolinium Contrast Agent (WT Based) IV PRN (13:39)
[2021-04-10 18:31] LABS: Prothrombin Time 33.8 Seconds (9.4-12.1)
[2021-04-10 18:34] LABS: Activated Partial Thrombo Time 46.7 Seconds (26.0-36.0)
[2021-04-10] MEDS ORDERED: Fluticasone Propionate Nasal 50 MCG/SPRAY BOTTLE NS PRN (20:22)
[2021-04-10] MEDS ORDERED: Naloxone 0.4 MG/ML INJ IVP PRN (20:26)
[2021-04-10] MEDS ORDERED: Dextrose Gel 15 GM/37.5 ML TUBE PO PRN ×2 (20:26)
[2021-04-10] MEDS ORDERED: D5% in Water 1,000 ML IVC PRN (20:26)
[2021-04-10] MEDS ORDERED: Ketorolac 30 MG/ML VIAL IVP PRN (20:26)
[2021-04-10] MEDS ORDERED: *HR* Dextrose 50 % in Water (Vial) 50 ML VIAL IVP PRN (20:26)
[2021-04-10] MEDS ORDERED: Ondansetron 4 MG/2 ML VIAL IVP PRN (20:26)
[2021-04-10] MEDS ORDERED: Melatonin 3 MG TABLET PO PRN (20:26)
[2021-04-10] MEDS: Sennosides 8.6 MG TABLET PO SCH (22:02)
[2021-04-10] MEDS: Aspirin Enteric Coated 81 MG Tablet PO SCH (22:03)
[2021-04-10] MEDS: clonazePAM 0.5 MG TABLET PO SCH (22:03)
[2021-04-11] MEDS: Insulin LISPRO 300 UNITS/3 ML VIAL SUBQ SCH ×4 (03:10→18:20)
[2021-04-11 07:12] LABS: INR 3.1; Prothrombin Time 35.1 Seconds (9.4-12.1)
[2021-04-11] MEDS: carvediloL 25 MG TABLET PO SCH ×2 (08:42→17:37)
[2021-04-11] MEDS: clonazePAM 0.5 MG TABLET PO SCH ×2 (08:43→20:51)
[2021-04-11] MEDS: Loratadine 10 MG TABLET PO SCH (08:43)
[2021-04-11] MEDS: *HR* Amiodarone 200 MG TABLET PO SCH (08:43)
[2021-04-11] MEDS ORDERED: Warfarin perPT PO PRN (18:00)
[2021-04-11] MEDS: Aspirin Enteric Coated 81 MG Tablet PO SCH (20:51)
[2021-04-12] MEDS: Insulin LISPRO 300 UNITS/3 ML VIAL SUBQ SCH ×6 (01:36→21:53)
[2021-04-12 05:55] LABS: Calcium 8.8 mg/dL (8.6-10.3); Potassium 3.7 mEq/L (3.5-5.1)
[2021-04-12 05:56] LABS: Hematocrit 34.9 % (35.3-44.9); Hemoglobin 10.9 g/dL (11.5-15.4); Mean Corpuscular Volume 91.8 fL (83.0-100.0); White Blood Count 8.5 K/mcL (4.3-11.1)
[2021-04-12 05:57] LABS: Basophils % 0.5 %; Eosinophils # 0.1 K/mcL (0.0-0.6); Eosinophils % 1.5 %; Immature Granulocytes % 0.4 % (0-4); Lymphocytes # 1.8 K/mcL (0.6-4.6); Lymphocytes % 20.6 %; Mean Corpuscular HGB Conc 31.2 g/dL (31.6-35.5); Mean Corpuscular Hemoglobin 28.7 pg (28.0-33.3); Mean Platelet Volume 10.1 fL (9.4-12.4); Monocytes # 0.7 K/mcL (0.0-1.3); Monocytes % 8.2 %; Neutrophils # 5.9 K/mcL (1.6-8.9); Platelet Count 207 K/mcL (140-400); Segmented Neutrophils % 68.8 %
[2021-04-12 06:10] LABS: INR 2.2; Prothrombin Time 24.8 Seconds (9.4-12.1)
[2021-04-12] MEDS: Loratadine 10 MG TABLET PO SCH (08:41)
[2021-04-12] MEDS: lisinopriL 10 MG TABLET PO SCH (08:42)
[2021-04-12] MEDS: carvediloL 25 MG TABLET PO SCH (09:21)
[2021-04-12] MEDS: *HR* Amiodarone 200 MG TABLET PO SCH (09:40)
[2021-04-12] MEDS: clonazePAM 0.5 MG TABLET PO SCH ×2 (09:40→21:51)
[2021-04-12] MEDS ORDERED: *HR* OxyCODONE/APAP 5/325 TABLET PO PRN (12:41)
[2021-04-12] MEDS: *HR* OxyCODONE/APAP 7.5/325 TABLET PO PRN ×2 (15:03→21:51)
[2021-04-12] MEDS: carvediloL 6.25 MG TABLET PO SCH (17:06)
[2021-04-12] MEDS ORDERED: *HR* Warfarin 2 MG TABLET PO ONE (18:00)
[2021-04-12] MEDS: Aspirin Enteric Coated 81 MG Tablet PO SCH (21:51)
[2021-04-12] MEDS: Sennosides 8.6 MG TABLET PO SCH (21:52)
[2021-04-13] MEDS: *HR* OxyCODONE/APAP 7.5/325 TABLET PO PRN (02:15)
[2021-04-13 04:38] LABS: Basophils % 0.5 %; Eosinophils # 0.2 K/mcL (0.0-0.6); Eosinophils % 2.4 %; Hematocrit 34.4 % (35.3-44.9); Hemoglobin 10.8 g/dL (11.5-15.4); Immature Granulocytes % 0.3 % (0-4); Lymphocytes # 1.6 K/mcL (0.6-4.6); Lymphocytes % 24.6 %; Mean Corpuscular HGB Conc 31.4 g/dL (31.6-35.5); Mean Corpuscular Hemoglobin 28.5 pg (28.0-33.3); Mean Corpuscular Volume 90.8 fL (83.0-100.0); Monocytes # 0.6 K/mcL (0.0-1.3); Monocytes % 8.4 %; Neutrophils # 4.2 K/mcL (1.6-8.9); Platelet Count 203 K/mcL (140-400); Red Blood Count 3.79 M/mcL (3.82-4.97); Segmented Neutrophils % 63.8 %; White Blood Count 6.5 K/mcL (4.3-11.1)
[2021-04-13 04:59] LABS: Calcium 8.6 mg/dL (8.6-10.3); Magnesium 1.8 mg/dL (1.6-2.6); Potassium 3.5 mEq/L (3.5-5.1)
[2021-04-13 05:00] LABS: % Iron Saturation 9 % (15-50); Iron 23 mcg/dL (50-170); Transferrin 193 mg/dL (203-362)
[2021-04-13 05:08] LABS: INR 1.4; Prothrombin Time 16.2 Seconds (9.4-12.1)
[2021-04-13 05:13] LABS: Thyroid Stimulating Hormone 1.373 mcIU/mL (0.340-5.600)
[2021-04-13 05:17] LABS: Ferritin 56 ng/mL (10-120)
[2021-04-13 05:21] LABS: Estimated Average Glucose 126 mg/dl
[2021-04-13 05:23] LABS: Folate 10.5 ng/mL (3.0-16.0)
[2021-04-13] MEDS: Insulin LISPRO 300 UNITS/3 ML VIAL SUBQ SCH ×4 (09:40→20:15)
[2021-04-13] MEDS: carvediloL 6.25 MG TABLET PO SCH ×2 (09:43→18:01)
[2021-04-13] MEDS: *HR* Amiodarone 200 MG TABLET PO SCH (09:44)
[2021-04-13] MEDS: lisinopriL 10 MG TABLET PO SCH (09:44)
[2021-04-13] MEDS: Loratadine 10 MG TABLET PO SCH (09:44)
[2021-04-13] MEDS: clonazePAM 0.5 MG TABLET PO SCH ×2 (09:45→20:35)
[2021-04-13] MEDS: *HR* OxyCODONE/APAP 10/325 TABLET PO PRN ×2 (10:05→18:02)
[2021-04-13] MEDS ORDERED: *HR* Warfarin 2 MG TABLET PO ONE (18:00)
[2021-04-13] MEDS: Iron Sucrose Complex 200 MG in 0.9 % Sodium Chloride 100 ML IVPB SCH (18:05)
[2021-04-13] MEDS: Aspirin Enteric Coated 81 MG Tablet PO SCH (20:35)
[2021-04-14] MEDS: *HR* OxyCODONE/APAP 10/325 TABLET PO PRN (03:29)
[2021-04-14 04:42] LABS: Basophils % 0.6 %; Eosinophils # 0.2 K/mcL (0.0-0.6); Eosinophils % 3.4 %; Hematocrit 32.3 % (35.3-44.9); Hemoglobin 10.6 g/dL (11.5-15.4); Immature Granulocytes % 0.3 % (0-4); Lymphocytes # 1.7 K/mcL (0.6-4.6); Lymphocytes % 25.2 %; Mean Corpuscular HGB Conc 32.8 g/dL (31.6-35.5); Mean Corpuscular Volume 88.5 fL (83.0-100.0); Mean Platelet Volume 9.9 fL (9.4-12.4); Monocytes # 0.7 K/mcL (0.0-1.3); Monocytes % 9.7 %; Neutrophils # 4.1 K/mcL (1.6-8.9); Platelet Count 212 K/mcL (140-400); Red Blood Count 3.65 M/mcL (3.82-4.97); Segmented Neutrophils % 60.8 %; White Blood Count 6.8 K/mcL (4.3-11.1)
[2021-04-14 04:49] LABS: INR 1.6; Prothrombin Time 18.1 Seconds (9.4-12.1)
[2021-04-14 05:02] LABS: BUN/Creatinine Ratio 13 (6-26); Blood Urea Nitrogen 12 mg/dL (8-23); Calcium 8.5 mg/dL (8.6-10.3); Carbon Dioxide 33 mEq/L (23-29); Chloride 104 mEq/L (98-107); Glucose 123 mg/dL (70-105); Magnesium 1.8 mg/dL (1.6-2.6); Osmolality,Calculated 293 (280-300); Potassium 3.8 mEq/L (3.5-5.1); Sodium 141 mEq/L (136-145); eGFR For African Americans > 60 (> 60); eGFR For Non-African Americans 57 (> 60)
[2021-04-14] MEDS: Loratadine 10 MG TABLET PO SCH (08:47)
[2021-04-14] MEDS: *HR* Amiodarone 200 MG TABLET PO SCH (08:47)
[2021-04-14] MEDS: carvediloL 6.25 MG TABLET PO SCH (08:47)
[2021-04-14] MEDS: lisinopriL 10 MG TABLET PO SCH (08:47)
[2021-04-14] MEDS: clonazePAM 0.5 MG TABLET PO SCH (08:47)
[2021-04-14] MEDS: Insulin LISPRO 300 UNITS/3 ML VIAL SUBQ SCH ×2 (08:49→14:57)
[2021-04-14] MEDS: Iron Sucrose Complex 200 MG in 0.9 % Sodium Chloride 100 ML IVPB SCH (09:54)
[2021-04-14 10:14] VITALS: BP 121/63; PULSE 56; TEMP 98.7; O2SAT 96
[2021-04-14 12:43] LABS: Adenovirus Not Detected (Not Detect); Bordetella Pertussis Not Detected (Not Detect); Chlamydophila pneumoniae Not Detected (Not Detect); Coronavirus 229E Not Detected (Not Detect); Coronavirus HKU1 Not Detected (Not Detect); Coronavirus NL63 Not Detected (Not Detect); Coronavirus OC43 Not Detected (Not Detect); Human Metapneumovirus Not Detected (Not Detect); Human Rhinovirus/Enterovirus Not Detected (Not Detect); Influenza A Subtype 2009 H1 Not Detected (Not Detect); Influenza B Not Detected (Not Detect); Mycoplasma pneumoniae Not Detected (Not Detect); Parainfluenza Virus 1 Not Detected (Not Detect); Parainfluenza Virus 2 Not Detected (Not Detect); Parainfluenza Virus 3 Not Detected (Not Detect); Parainfluenza Virus 4 Not Detected (Not Detect); Respiratory Syncytial Virus Not Detected (Not Detect); SARS-CoV-2 Not Detected (Not Detect)
[2021-04-14] MEDS ORDERED: *HR* Warfarin 2 MG TABLET PO ONE (18:00)
== END 2021-04-14 14:40 | DRG 605 ==
LOC: 3NENU 09:34 → EMEROOARM 09:34 → 3NENU 20:57 → SUATTDRO 04-11 16:21
PROVIDERS: ADMIT Family Medicine; ATTEND Pharmacist